=== PATIENT | male | born 1950 | race Caucasian/White ===

== ENCOUNTER 2017-08-07 12:11 | Inpatient (IN) | payer OTHER ==
[~2017-08-07] VITALS: Ht 177.8 cm; Wt 73.7 kg
[~2017-08-07 12:11] MED LIST: ALBU1AER9 INH; ASPCH81X PO; MULT-506 PO
[2017-08-07] MEDS ORDERED: ASPIRIN 81 MG CHEW PO STA (12:38)
--- NOTE | 2017-08-07 12:45 | EMERGENCY ROOM VISIT NOTE ---
History Report prepared by Gladys: Kyle Montes Under the Supervision of: Dr. Deangelo Sanabria D.O. First contact with patient: 12:25 Chief Complaint: CHEST PAIN Stated Complaint: CHEST PAINS History of Present Illness The patient is a 67 year old male who presents to the Emergency Room with complaints of an episode off worsening chest pain that started around 3 and a half hours ago. He states that he has a history of 2 heart attacks, the last one being in 2009. He also had a heart catheterization and stress test at that time. The patient says that his chest pain started 3 months ago but has been intermittent. He says that while watching television this morning, he had an episode of chest pain that was worse than his prior episodes. The patient states that he currently does not have the pain. He adds that he was watching his arteries in his arms, and the one in his left arm "collapsed". The patient says that during his episodes, his vision gets blurry and he gets a dry mouth. He notes that he does not take any medications daily. He denies any neck or back pain. The patient notes that he is a smoker. Source of History: patient Onset: 3 and a half hours ago Position: chest Quality: other (pain) Timing: worsening, other (episode) Associated Symptoms: No neck pain, No back pain Note: Associated symptoms: Vision gets blurry and gets a dry mouth during episodes. Review of Systems See HPI for pertinent positives & negatives. A total of 10 systems reviewed and were otherwise negative. Past Medical & Surgical Medical Problems: (1) CAD (coronary artery disease) Surgical Problems: (1) H/O shoulder surgery (2) History of appendectomy (3) S/P left knee arthroscopy (4) S/P surgical manipulation of ankle joint Family History Cancer Heart disease Hypertension Social History Smoking Status: Current Every Day Smoker Alcohol Use: occasionally Occupation Status: employed Current/Historical Medications Scheduled Multivitamin (Multivitamin), 1 TAB PO DAILY Scheduled PRN Aspirin (Aspirin Chewable), 81 MG PO for Pain Nitroglycerin (Nitrostat), 0.4 MG UT PRN PRN for chest pain Allergies Coded Allergies: No Known Allergies (Verified , 08/07/17) Physical Exam Vital Signs Date Time Temp Pulse Resp B/P (MAP) Pulse Ox O2 Delivery O2 Flow Rate FiO2 08/07/17 14:58 62 18 205/103 98 Room Air 08/07/17 13:32 59 08/07/17 13:21 98 Room Air 08/07/17 12:16 37.0 74 189/100 95 Room Air Physical Exam GENERAL: Patient is awake, alert, and in no acute distress. Patient is resting comfortably and showing no signs of anxiety EYES: The conjunctivae are clear. The pupils are round and reactive. EARS, NOSE, MOUTH AND THROAT: The nose is without any evidence of any deformity. Mucous membranes are moist tongue is midline NECK: The neck is nontender and supple. RESPIRATORY: Lung sounds are diminished throughout with scattered rhonchi. No tachypnea or conversational dyspnea appreciated. CARDIOVASCULAR: Regular rate and rhythm noted there no murmurs rubs or gallops normal S1 normal S2 GASTROINTESTINAL: The abdomen is soft. Bowel sounds are present in all quadrants. Abdomen is nontender MUSCULOSKELETAL/EXTREMITIES: There is no evidence of gross deformity full range of motion is noted in the hips and shoulders SKIN: There is no obvious evidence of any rash. There are no petechiae, pallor or cyanosis noted. NEUROLOGIC: Patient is awake alert and oriented x3 strength is symmetric patellar reflexes are 2+ bilaterally Medical Decision & Procedures ER Provider Diagnostic Interpretation: X-ray results as stated below per interpretation by me and the radiologist. CHEST ONE VIEW PORTABLE CLINICAL HISTORY: CHEST PAIN COMPARISON STUDY: Chest radiograph April 04, 2012. FINDINGS: Lung volumes are normal. No pneumothorax or pleural effusion is noted. There is no consolidation or evidence for pulmonary edema. Cardiac size is normal. Mediastinal contours are normal. The appearance of the chest is unchanged. IMPRESSION: No acute cardiopulmonary findings. Electronically signed by: Vikas Akers M.D. 08/07/2017 12:59 PM Dictated Date/Time: 08/07/2017 12:58 PM Laboratory Results 08/07/17 13:10 Red Blood Count 5.26, Mean Corpuscular Volume 95.6, Mean Corpuscular Hemoglobin 33.3, Mean Corpuscular Hemoglobin Concent 34.8, Mean Platelet Volume 9.2, Neutrophils (%) (Auto) 71.2, Lymphocytes (%) (Auto) 19.8, Monocytes (%) (Auto) 6.3, Eosinophils (%) (Auto) 2.0, Basophils (%) (Auto) 0.5, Neutrophils # (Auto) 4.64, Lymphocytes # (Auto) 1.29, Monocytes # (Auto) 0.41, Eosinophils # (Auto) 0.13, Basophils # (Auto) 0.03 08/07/17 13:10 Test 08/07/17 13:10 White Blood Count 6.51 K/uL (4.8-10.8) Red Blood Count 5.26 M/uL (4.7-6.1) Hemoglobin 17.5 g/dL (14.0-18.0) Hematocrit 50.3 % (42-52) Mean Corpuscular Volume 95.6 fL (80-100) Mean Corpuscular Hemoglobin 33.3 pg (25-34) Mean Corpuscular Hemoglobin Concent 34.8 g/dl (32-36) Platelet Count 177 K/uL (130-400) Mean Platelet Volume 9.2 fL (7.4-10.4) Neutrophils (%) (Auto) 71.2 % Lymphocytes (%) (Auto) 19.8 % Monocytes (%) (Auto) 6.3 % Eosinophils (%) (Auto) 2.0 % Basophils (%) (Auto) 0.5 % Neutrophils # (Auto) 4.64 K/uL (1.4-6.5) Lymphocytes # (Auto) 1.29 K/uL (1.2-3.4) Monocytes # (Auto) 0.41 K/uL (0.11-0.59) Eosinophils # (Auto) 0.13 K/uL (0-0.5) Basophils # (Auto) 0.03 K/uL (0-0.2) RDW Standard Deviation 47.2 fL (36.4-46.3) RDW Coefficient of Variation 13.5 % (11.5-14.5) Immature Granulocyte % (Auto) 0.2 % Immature Granulocyte # (Auto) 0.01 K/uL (0.00-0.02) Prothrombin Time 10.4 SECONDS (9.0-12.0) Prothromb Time International Ratio 1.0 (0.9-1.1) Activated Partial Thromboplast Time 25.7 SECONDS (21.0-31.0) Partial Thromboplastin Ratio 1.0 Anion Gap 6.0 mmol/L (3-11) Est Creatinine Clear Calc Drug Dose 67.5 ml/min Estimated GFR () 83.0 Estimated GFR (Non- 71.6 BUN/Creatinine Ratio 13.4 (10-20) Calcium Level 8.7 mg/dl (8.5-10.1) Total Bilirubin 0.4 mg/dl (0.2-1) Direct Bilirubin 0.1 mg/dl (0-0.2) Aspartate Amino Transf (AST/SGOT) 18 U/L (15-37) Alanine Aminotransferase (ALT/SGPT) 27 U/L (12-78) Alkaline Phosphatase 76 U/L (45-117) Troponin I < 0.015 ng/ml (0-0.045) Total Protein 7.3 gm/dl (6.4-8.2) Albumin 3.7 gm/dl (3.4-5.0) Lipase 106 U/L (73-393) Laboratory results per my review. Medications Administered Medications (Trade) Dose Ordered Sig/Marva Route Start Time Stop Time Status Last Admin Dose Admin Aspirin (Aspirin Chew) 324 mg NOW STAT PO 08/07/17 12:38 08/07/17 12:39 DC 08/07/17 13:32 324 MG ECG Per My Interpretation Indication: chest pain Rate (beats per minute): 68 Rhythm: normal sinus, sinus bradycardia Findings: ST depression (Lateral), other (no PVCs) Change: no significant change (from Oct 01 2013) ED Course 1236: The patient was evaluated in room B6. A complete history and physical examination were performed. 1238: Aspirin Chew 324 mg PO. 1403: Upon reevaluation, the patient is resting. I discussed results and treatment plan with him. He verbalizes agreement and understanding. The patient will be evaluated for further management and care. 1421: I discussed the patient with Marie Kennedy. The patient will evaluate the patient for further treatment. Medical Decision Differential diagnosis: Etiologies such as cardiac ischemia, aortic dissection, pulmonary embolism, pneumonia, pneumothorax, musculoskeletal, infections, pericarditis, myocarditis , esophageal rupture, gastrointestinal, as well as others were entertained. Nursing notes reviewed. The patient is a 67-year-old male who has a history of acute coronary syndrome as well as coronary artery stenting who presented to the emergency department for intermittent chest discomfort. The patient does not follow up with a primary care physician. He continues to smoke. He started having chest discomfort and was concerned it could be related to his heart so he came to the emergency department. He has no chest pain at this time. The patient's EKG does not appear to be change from previous. I discussed the patient's laboratory and radiographic studies with him. I also discussed the limitations of the emergency department workup for chest pain with him. Given his past medical history and no primary care physician I discussed this case with the on- call [facility] hospitalist group. They have agreed to evaluate the patient in the emergency department for further management and disposition. Medication Reconcilliation Current Medication List: was personally reviewed by me Blood Pressure Screening Patient's blood pressure: Elevated blood pressure Blood pressure disposition: Elevated BP felt to be situational Consults Time Called: 1410 Consulting Physician: Marie Kennedy Returned Call: 1421 I discussed the patient with Marie Kennedy. The patient will evaluate the patient for further treatment. Impression Primary Impression: Chest pain Additional Impression: Abnormal EKG Scribe Attestation The scribe's documentation has been prepared under my direction and personally reviewed by me in its entirety. I confirm that the note above accurately reflects all work, treatment, procedures, and medical decision making performed by me. Departure Information Dispostion Being Evaluated By Hospitalist Referrals No Doctor, Assigned (PCP) Patient Instructions My [facility] Problem Qualifiers Primary Impression: Chest pain Chest pain type: unspecified Qualified Codes: R07.9 - Chest pain, unspecified
--- NOTE | 2017-08-07 13:01 | DIAGNOSTIC IMAGING REPORT ---
CHEST ONE VIEW PORTABLE CLINICAL HISTORY: CHEST PAIN COMPARISON STUDY: Chest radiograph April 04, 2012. FINDINGS: Lung volumes are normal. No pneumothorax or pleural effusion is noted. There is no consolidation or evidence for pulmonary edema. Cardiac size is normal. Mediastinal contours are normal. The appearance of the chest is unchanged. IMPRESSION: No acute cardiopulmonary findings. Electronically signed by: Vikas Akers M.D. 08/07/2017 12:59 PM Dictated Date/Time: 08/07/2017 12:58 PM
[2017-08-07 13:25] LABS: BASO % 0.5 %; BASO ABS # 0.03 K/uL (0-0.2); EOS ABS # 0.13 K/uL (0-0.5); HEMATOCRIT 50.3 % (42-52); HEMOGLOBIN 17.5 g/dL (14.0-18.0); IG# 0.01 K/uL (0.00-0.02); LYMPH % 19.8 %; LYMPH ABS # 1.29 K/uL (1.2-3.4); MEAN CELL VOLUME 95.6 fL (80-100); MEAN CORPUSCULAR HEMOGLOBIN 33.3 pg (25-34); MEAN CORPUSCULAR HGB CONC 34.8 g/dl (32-36); MEAN PLATELET VOLUME 9.2 fL (7.4-10.4); MONO % 6.3 %; MONO ABS # 0.41 K/uL (0.11-0.59); NEUT % 71.2 %; NEUT ABS # 4.64 K/uL (1.4-6.5); PLATELET COUNT 177 K/uL (130-400); RED CELL DISTRIBUTION WIDTH CV 13.5 % (11.5-14.5); RED CELL DISTRIBUTION WIDTH SD 47.2 fL (36.4-46.3); WHITE BLOOD COUNT 6.51 K/uL (4.8-10.8)
[2017-08-07 13:34] LABS: PTT PATIENT 25.7 SECONDS (21.0-31.0)
[2017-08-07 13:49] LABS: ALBUMIN 3.7 gm/dl (3.4-5.0); ALT/SGPT 27 U/L (12-78); BLOOD UREA NITROGEN 15 mg/dl (7-18); CALCIUM 8.7 mg/dl (8.5-10.1); CARBON DIOXIDE 25 mmol/L (21-32); CREATININE 1.08 mg/dl (0.60-1.40); GLUCOSE 101 mg/dl (70-99); LIPASE 106 U/L (73-393); POTASSIUM 4.1 mmol/L (3.5-5.1); SODIUM 137 mmol/L (136-145)
[2017-08-07 13:54] LABS: ALKALINE PHOSPHATASE 76 U/L (45-117); AST/SGOT 18 U/L (15-37); TOTAL PROTEIN 7.3 gm/dl (6.4-8.2)
[2017-08-07] MEDS ORDERED: ONDANSETRON INJ 2 MG/ML 2 ML VIAL IV PRN (15:00)
[2017-08-07] MEDS ORDERED: ACETAMINOPHEN 325 MG TAB PO PRN (15:00)
[2017-08-07] MEDS ORDERED: NITROGLYCERIN 0.4 MG SL PER TAB CHARGE SL PRN (15:00)
[2017-08-07] MEDS ORDERED: NTRGSL/4 UT (15:09)
[2017-08-07] MEDS ORDERED: LORAZEPAM 2 MG/ML 1 ML VIAL IV PRN (15:30)
--- NOTE | 2017-08-07 16:27 | History and Physical ---
History & Physical Date & Time of Service: Aug 07, 2017 ~ 14:30 Chief Complaint: Chest Pains Primary Care Physician: Dr. Wise History of Present Illness 67-year-old male who presents to the ER with a chief complaint of chest pain. Patient has history of coronary artery disease with STEMI in 2005 and 2009 S/P stenting. Patient has not been seen by primary care or cardiology since 2011. He reports he lost his job and lost his insurance and also has not taken his medication since that time. Patient reports increasing episodes of chest pain over the past 6 months. He reports that during the previous [place], he noted left- sided chest pain with fatigue and shortness of breath. He would take nitroglycerin and rest and symptoms are improved. He sometimes would have associated diaphoresis, lightheadedness, and near syncope. He developed these symptoms with exertion as well as at rest. He reports that this morning he was watching TV and developed a left-sided chest pain. He denies any radiation of the pain into his jaw, neck, shoulder, or arm. No abdominal pain, nausea, vomiting, or diarrhea. Patient reports an approximately 25 pound weight loss the past 3 months however he has been dieting. He denies any changes in bowel habits. No fevers or chills. He denies any urinary symptoms. In the ER patient's initial troponin is negative, EKG does not show any acute ST changes. Blood pressure is hypertensive, other vitals are stable. Past Medical/Surgical History Medical Problems: (1) CAD (coronary artery disease) Permanent Comment: 2005 - STEMI, BMS to RCA 10/2009 - STEMI, BMS to LAD, cath showed 70% ostial OM and 70% PDA disease Status: Chronic Surgical Problems: (1) H/O shoulder surgery Status: Chronic (2) History of appendectomy Status: Chronic (3) S/P left knee arthroscopy Status: Chronic (4) S/P surgical manipulation of ankle joint Status: Chronic Family History FH: liver cancer FATHER Social History Smoking Status: Current Every Day Smoker Alcohol Use: 4 beers/day Immunizations History of Pneumococcal: Yes Pneumococcal Date: Dec 21, 2007 History of Hepatitis B Vaccine: No Allergies Coded Allergies: No Known Allergies (Verified , 08/07/17) Home Medications Scheduled Multivitamin (Multivitamin), 1 TAB PO DAILY Scheduled PRN Aspirin (Aspirin Chewable), 81 MG PO for Pain Nitroglycerin (Nitrostat), 0.4 MG UT PRN PRN for chest pain Review of Systems ROS per HPI, all other systems reviewed and negative Physical Exam Vital Signs Date Time Temp Pulse Resp B/P (MAP) Pulse Ox O2 Delivery O2 Flow Rate FiO2 08/07/17 15:28 56 16 187/85 96 Room Air 08/07/17 14:58 62 18 205/103 98 Room Air 08/07/17 13:32 59 08/07/17 13:21 98 Room Air 08/07/17 12:16 37.0 74 189/100 95 Room Air General Appearance: WD/WN, no apparent distress Head: normocephalic, atraumatic Eyes: normal inspection, EOMI, sclerae normal ENT: hearing grossly normal, + pertinent finding (Mucous membranes moist) Neck: supple, no JVD, trachea midline Respiratory/Chest: lungs clear, normal breath sounds, no respiratory distress Cardiovascular: regular rate, rhythm, no edema, normal peripheral pulses Abdomen/GI: normal bowel sounds, non tender, soft, no organomegaly Extremities/Musculoskelatal: normal inspection, no calf tenderness, normal capillary refill Neurologic/Psych: no motor/sensory deficits, alert, normal mood/affect, oriented x 3 Skin: normal color, warm/dry Diagnostics Laboratory Results Results Past 24 Hours Test 08/07/17 13:10 Range/Units White Blood Count 6.51 4.8-10.8 K/uL Red Blood Count 5.26 4.7-6.1 M/uL Hemoglobin 17.5 14.0-18.0 g/dL Hematocrit 50.3 42-52 % Mean Corpuscular Volume 95.6 80-100 fL Mean Corpuscular Hemoglobin 33.3 25-34 pg Mean Corpuscular Hemoglobin Concent 34.8 32-36 g/dl Platelet Count 177 130-400 K/uL Mean Platelet Volume 9.2 7.4-10.4 fL Neutrophils (%) (Auto) 71.2 % Lymphocytes (%) (Auto) 19.8 % Monocytes (%) (Auto) 6.3 % Eosinophils (%) (Auto) 2.0 % Basophils (%) (Auto) 0.5 % Neutrophils # (Auto) 4.64 1.4-6.5 K/uL Lymphocytes # (Auto) 1.29 1.2-3.4 K/uL Monocytes # (Auto) 0.41 0.11-0.59 K/uL Eosinophils # (Auto) 0.13 0-0.5 K/uL Basophils # (Auto) 0.03 0-0.2 K/uL RDW Standard Deviation 47.2 36.4-46.3 fL RDW Coefficient of Variation 13.5 11.5-14.5 % Immature Granulocyte % (Auto) 0.2 % Immature Granulocyte # (Auto) 0.01 0.00-0.02 K/uL Prothrombin Time 10.4 9.0-12.0 SECONDS Prothromb Time International Ratio 1.0 0.9-1.1 Activated Partial Thromboplast Time 25.7 21.0-31.0 SECONDS Partial Thromboplastin Ratio 1.0 Sodium Level 137 136-145 mmol/L Potassium Level 4.1 3.5-5.1 mmol/L Chloride Level 106 98-107 mmol/L Carbon Dioxide Level 25 21-32 mmol/L Anion Gap 6.0 3-11 mmol/L Blood Urea Nitrogen 15 7-18 mg/dl Creatinine 1.08 0.60-1.40 mg/dl Est Creatinine Clear Calc Drug Dose 67.5 ml/min Estimated GFR () 83.0 Estimated GFR (Non- 71.6 BUN/Creatinine Ratio 13.4 10-20 Random Glucose 101 70-99 mg/dl Calcium Level 8.7 8.5-10.1 mg/dl Total Bilirubin 0.4 0.2-1 mg/dl Direct Bilirubin 0.1 0-0.2 mg/dl Aspartate Amino Transf (AST/SGOT) 18 15-37 U/L Alanine Aminotransferase (ALT/SGPT) 27 12-78 U/L Alkaline Phosphatase 76 45-117 U/L Troponin I < 0.015 0-0.045 ng/ml Total Protein 7.3 6.4-8.2 gm/dl Albumin 3.7 3.4-5.0 gm/dl Lipase 106 73-393 U/L Diagnostic Radiology CXR IMPRESSION: No acute cardiopulmonary findings. Impression Assessment and Plan CHEST PAIN, HISTORY OF CAD -Admit patient to telemetry -Patient presenting with increasing episodes of exertional and at rest chest pain, has history of coronary artery disease, has not been seen by a physician or taken his meds since 2011 due to loss of insurance -2005 STEMI S/P BMS to RCA, 2009 STEMI S/P BMS to LAD and cath at that time showed 70% ostial OM and 70% PDA disease -In the ED, initial troponin negative, EKG without acute ST changes -Will continue to cycle cardiac enzymes, resting echo -Patient very resistant to restarting medications, agreeable to aspirin and lisinopril for now -Cardiology consult, case discussed with Dr. Perez HYPERTENSION -Blood pressure currently uncontrolled -Has been off antihypertensives for the past 6 years -We will restart lisinopril 10 mg daily, would avoid beta blockers due to mild bradycardia ALCOHOL ABUSE -Patient reports drinking approximately 4 beers per day -No problems with withdrawal in the past -We will monitor patient closely for signs of withdrawal -Multivitamin, folic acid, thiamine DVT PROPHYLAXIS - SQ Lovenox DISPOSITION - The patient will be placed as observation status for now until further work up is complete. Addendum: I have seen and examined the patient have discussed the case with the provider above. I agree with the assessment and plan as stated. Please see cardiac consult written by Dr. Perez for further recommendations. Jaylon, DO Resuscitation Status VTE Prophylaxis Will order VTE Prophylaxis: Yes
[2017-08-07] MEDS ORDERED: THIAMINE HCL 100 MG TAB PO ONE (17:00)
[2017-08-07] MEDS ORDERED: LISINOPRIL 10 MG TAB PO ONE (17:00)
[2017-08-07 17:05] VITALS: BP 171/115; PULSE 61; TEMP 36.7; Ht 177.8 cm; Wt 73.7 kg
[2017-08-07 17:16] VITALS: O2SAT 96
[2017-08-07 19:01] VITALS: BP 156/78; PULSE 60; TEMP 36.9; O2SAT 96
--- NOTE | 2017-08-07 19:27 | Cardiology Consultation ---
Cardiology Consultation Date of Consultation: Aug 07, 2017 History of Present Illness Michael Dodd is a 67-year-old male seen in cardiology consultation per the request of JASON Robin for the evaluation of chest discomfort and hypertension. The patient has previously followed with Dr. Lui Trivedi of our practice, however it appears he stopped attending appointments in 2011 with most recent cardiology clinic visit dated 10/19/2011. At that time in 2011 he had complained of chest discomfort. A follow-up stress echocardiogram shortly thereafter revealed a fixed LAD territory wall motion abnormality with no evidence of inducible ischemia. This test described below. The patient never returned to cardiology follow-up. He states he has been off of his medications completely since he lost his job in 2011. He continues to smoke 1 pack of cigarettes per day. He drinks 4-5 beer beverages per day. He states he has been having exertional chest discomfort for an interval of approximately 6 months. He recalls the last time that he had significant exertional chest discomfort was during hunting season in the fall. This morning he came to the hospital when he had a left-sided chest discomfort described as being somewhat focal over his left nipple. He was concerned however that the discomfort persisted and that it was reminiscent of his past heart attack pain. He therefore came to the emergency room. On presentation he was significant hypertensive with blood pressure readings of 189/100 and 205/ 103 on presentation. He thus far has received 10 mg of oral lisinopril and his blood pressure and most recent vital sign check was 156/78. The patient states he is chest pain-free. He believes his pain dissipated just before he arrived at the hospital at approximately 11 AM having her after the hospital just after 12 noon. A single EKG is on the chart dated 08/07/17 at 1223 revealed normal sinus rhythm at 68 bpm with very mild nonspecific ST abnormalities. Past Medical/Surgical History Problem List: Medical Problems: (1) CAD (coronary artery disease) Surgical Problems: (1) H/O shoulder surgery (2) History of appendectomy (3) S/P left knee arthroscopy (4) S/P surgical manipulation of ankle joint History Past Medical History: 1. Coronary heart disease with anterior ST segment elevation myocardial infarction in 2009 for which he underwent cardiac catheterization and bare- metal stenting to the LAD at that time, residual 70% ostial obtuse marginal lesion was noted in 70% PDA disease noted. -Inferior wall STEMI 2007 with bare-metal stent to the right coronary artery at that time 2. Nuclear stress test May 2011 demonstrated septal scar without ischemia and preserved LVEF, which correlated with echocardiogram findings and apical, and anteroseptal scar with mild to moderate hypokinesis in that territory. 3. History of alcohol abuse 4. History of tobacco use. 5. Hypertension 6. Dyslipidemia 7. History of left ventricular mural thrombus which had resolved on follow-up echocardiogram, last available report 2011 8. Stress echocardiogram 10/23/2011 revealed a fixed wall motion abnormality encompassing the mid and apical segments of the anterior septum as well as the apical inferior septum which were hypokinetic at rest and are unchanged with stress, the remaining myocardial segments augmented appropriately it was felt that there is no evidence of inducible ischemia. Past Surgical History: 1. Cardiac catheterization 2009 and 2007 2. Shoulder surgery 2003 Social History: Everyday smoker History of excessive alcohol use in the past Family History: Notable for heart disease and mother as well as stroke There is history of cancer of the liver and hypertension Review Of Systems See above for pertinent positives & negatives. A total of 10 systems reviewed and were otherwise negative. Allergies Coded Allergies: No Known Allergies (Verified , 08/07/17) Medications Reported Home Medications Medications Dose Route/Sig Max Daily Dose Days Date Category Nitrostat (Nitroglycerin) 0.4 Mg Tab 0.4 Mg UT PRN PRN 08/07/17 Reported Multivitamin (Multivitamins) Tab 1 Tab PO DAILY 10/01/13 Reported Aspirin Chewable (Aspirin) 81 Mg Chew 81 Mg PO PRN 04/04/12 Reported Physical Exam Vital Signs (Last 8hrs): Last 8 Hrs Date Time Temp Pulse Resp B/P (MAP) Pulse Ox O2 Delivery O2 Flow Rate FiO2 08/07/17 17:16 96 Room Air 08/07/17 17:05 36.7 61 20 171/115 08/07/17 15:28 56 16 187/85 96 Room Air 08/07/17 14:58 62 18 205/103 98 Room Air 08/07/17 13:32 59 08/07/17 13:21 98 Room Air 08/07/17 12:16 37.0 74 189/100 95 Room Air General Appearance: Alert and Oriented x3. NAD. Head: Normocephalic Atraumatic. Eyes: PERRLA, EOMI, conjunctiva and sclera clear Neck: Supple. No carotid bruits noted. No JVD. No HJD. Respiratory: Breath sounds clear to auscultation bilaterally. No w/r/r. Cardiovascular: Reg rate and rhythm. S1 and S2 noted. No murmurs, rubs, gallops. PMI non displace. Abdomen: Normal bowel sounds, soft nontender. no abdominal bruits. Extremities: No edema, no clubbing or cyanosis. distal pulses 2/4 bilaterally. Neuro: No focal deficits. Psychiatric: Normal affect. Data Last 24 Hours Test 08/07/17 13:10 08/07/17 19:00 White Blood Count 6.51 K/uL Red Blood Count 5.26 M/uL Hemoglobin 17.5 g/dL Hematocrit 50.3 % Mean Corpuscular Volume 95.6 fL Mean Corpuscular Hemoglobin 33.3 pg Mean Corpuscular Hemoglobin Concent 34.8 g/dl Platelet Count 177 K/uL Mean Platelet Volume 9.2 fL Neutrophils (%) (Auto) 71.2 % Lymphocytes (%) (Auto) 19.8 % Monocytes (%) (Auto) 6.3 % Eosinophils (%) (Auto) 2.0 % Basophils (%) (Auto) 0.5 % Neutrophils # (Auto) 4.64 K/uL Lymphocytes # (Auto) 1.29 K/uL Monocytes # (Auto) 0.41 K/uL Eosinophils # (Auto) 0.13 K/uL Basophils # (Auto) 0.03 K/uL RDW Standard Deviation 47.2 fL RDW Coefficient of Variation 13.5 % Immature Granulocyte % (Auto) 0.2 % Immature Granulocyte # (Auto) 0.01 K/uL Prothrombin Time 10.4 SECONDS Prothromb Time International Ratio 1.0 Activated Partial Thromboplast Time 25.7 SECONDS Partial Thromboplastin Ratio 1.0 Sodium Level 137 mmol/L Potassium Level 4.1 mmol/L Chloride Level 106 mmol/L Carbon Dioxide Level 25 mmol/L Anion Gap 6.0 mmol/L Blood Urea Nitrogen 15 mg/dl Creatinine 1.08 mg/dl Est Creatinine Clear Calc Drug Dose 67.5 ml/min Estimated GFR () 83.0 Estimated GFR (Non- 71.6 BUN/Creatinine Ratio 13.4 Random Glucose 101 mg/dl Calcium Level 8.7 mg/dl Total Bilirubin 0.4 mg/dl Direct Bilirubin 0.1 mg/dl Aspartate Amino Transf (AST/SGOT) 18 U/L Alanine Aminotransferase (ALT/SGPT) 27 U/L Alkaline Phosphatase 76 U/L Troponin I < 0.015 ng/ml Total Protein 7.3 gm/dl Albumin 3.7 gm/dl Lipase 106 U/L Hepatitis C Antibody Screen NEG EKG as noted above telemetry reveals sinus rhythm Assessment & Plan Impression: 67-year-old male 1. Chest discomfort, negative enzymes and negative EKG 1, chest pain resolved 2. No coronary artery disease previous inferior and anterior myocardial infarctions 2007 and in 2009 at which time he received bare-metal stents in the right coronary artery in 2007 and in the LAD and 2009. Most recent cardiac catheterization in 2009 he had residual CAD in the obtuse marginal territory as well as the RPDA territory. Negative stress testing in 2011 after which time he completely fell off the cardiology wagon, stopped following up, and stopped taking his medications. 3. Hypertension 4. Ongoing cigarette smoking 5. History of alcohol use, in the past was documented that he was having 40 alcoholic beverages per week, he states he has 4-5 beer beverages per day Plan: At present the patient is chest pain-free. Given the results of his cardiac catheterization in 2009, it would not be surprising that he has exertional chest discomfort when he is off of his medication therapy. Based on his medication list is documented on 02/22/2012 in our office he was on aspirin 81 mg , atorvastatin 80 mg, clopidogrel 75 mg, furosemide 20 mg, lisinopril 10 mg, metoprolol tartrate 50 mg a.m. and 25 mg p.m. at that time. Aspirin has been resumed as has been lisinopril 10 mg daily. I am going to add back his metoprolol tartrate and it is a 25 mg twice daily to ease him back into a routine and prevent symptomatic low blood pressure. I am going to transition him to pravastatin 40 mg. I counseled him that all these medications are available inexpensively for $4 a month at [facility], and that we should be able to find a medication program for him that would be affordable for him. Plan to trend his cardiac enzymes and symptoms overnight. If his cardiac enzymes are negative, we will likely proceed with a nuclear stress test as I anticipate this test will have better sensitivity for discriminating between his past LAD territory scar and inducible ischemia. Bernard Perez, DO
[2017-08-07] MEDS ORDERED: PRAVASTATIN SOD 40 MG TAB PO ONE (19:28)
[2017-08-07 20:00] VITALS: O2SAT 96
[2017-08-07] MEDS: METOPROLOL TARTRATE 25 MG TAB PO SCH (20:21)
[2017-08-07] MEDS: ENOXAPARIN 40 MG/0.4 ML SYR SC SCH (20:21)
[2017-08-07 23:59] VITALS: BP 122/75; PULSE 53; TEMP 36.7; O2SAT 94
[2017-08-08 04:00] VITALS: BP 124/73; PULSE 52; TEMP 36.7; O2SAT 94
--- NOTE | 2017-08-08 06:58 | Clinical Documentation Query ---
MIGUEL Cherry : CLINICAL DOCUMENTATION QUERY Patient is a 67 year old male with a history of CAD admitted for evaluation of "chest pain". This cannot be interpreted by the tobacco feeder catcher to be synonymous with angina. If this "chest pain" is believed to be associated with CAD/ischemic in origin, consider explicit documentation as suggested below. In your clinical opinion is this patient being managed for: ( ) Unstable angina (in the setting of CAD) ( ) Not Agree ( ) Other explanation of clinical findings (Please Explain) ( ) Unable to determine (Please Define) ( ) Need to Discuss The medical record reflects the following clinical findings, treatment, and risk factors. Clinical Indicators: As above Treatment: Telemetry, cardiology consultation, serial enzymes, nuclear med stress test, pravastatin, ASA, Lisinopril, Lopressor Risk Factors: Age, CAD, smoking, hypertension, hyperlipidemia Please clarify and document your clinical opinion in the progress notes and discharge summary. Terms such as "probable", "suspected", "likely", "questionable", "possible", or "still to be ruled out" are acceptable. IF IN AGREEMENT, YOU MUST DOCUMENT ABOVE DIAGNOSTIC STATEMENT IN DAILY PROGRESS NOTES AND DISCHARGE SUMMARY. This document is not part of the patient's record. Thank You, Edvin Oneil, RN [phone]
[2017-08-08 07:50] LABS: HEMATOCRIT 49.8 % (42-52); HEMOGLOBIN 16.8 g/dL (14.0-18.0); MEAN CELL VOLUME 96.3 fL (80-100); MEAN CORPUSCULAR HEMOGLOBIN 32.5 pg (25-34); MEAN CORPUSCULAR HGB CONC 33.7 g/dl (32-36); MEAN PLATELET VOLUME 9.7 fL (7.4-10.4); PLATELET COUNT 192 K/uL (130-400); RED CELL DISTRIBUTION WIDTH CV 13.5 % (11.5-14.5); RED CELL DISTRIBUTION WIDTH SD 47.5 fL (36.4-46.3); WHITE BLOOD COUNT 7.12 K/uL (4.8-10.8)
[2017-08-08 07:56] VITALS: BP 121/70; PULSE 51; TEMP 36.7; O2SAT 95
[2017-08-08 08:21] LABS: CALCIUM 8.6 mg/dl (8.5-10.1); CREATININE 0.96 mg/dl (0.60-1.40); POTASSIUM 4.1 mmol/L (3.5-5.1)
[2017-08-08] MEDS: METOPROLOL TARTRATE 25 MG TAB PO SCH ×2 (09:00→20:48)
[2017-08-08] MEDS: THIAMINE HCL 100 MG TAB PO SCH (09:00)
--- NOTE | 2017-08-08 10:02 | Cardiology Follow-Up ---
Subjective General Date of Service: Aug 08, 2017. Chief Complaint: follow up chest pain Pt evaluation today including: conversation w/ patient, physical exam History of Present Illness The patient is a 67 year old male seen in cardiology follow up. CP free overnight. BP improved on medications. Serial troponin measurements have been normal. EKG this am without acute changes. Known h/o LAD territory septal scar based on prior testing. Allergies Coded Allergies: No Known Allergies (Verified , 08/07/17) Social History Smoking Status: Current Every Day Smoker Hx Tobacco Use In Past Year?: Yes Hx Alcohol Use - Type And Amou: Yes (6 beers per day) Hx Substance Use - Type And Am: No Physical Exam Vital Signs Last Vital Signs Documentation Date Time Temp Pulse Resp B/P (MAP) Pulse Ox O2 Delivery O2 Flow Rate FiO2 08/08/17 07:56 36.7 51 18 121/70 (87) 95 Room Air Physical Exam Constitutional: Level of Distress: NAD Neck: supple Lungs: Auscultation: no wheezing, no rales/crackles, no rhonchi Cardiovascular: Heart Auscultation: RRR, normal S1, normal S2, no murmurs Extremities: no cyanosis, no edema Neurologic: Gait & Station: pertinent finding (no focal deficits ) Assessment and Plan Assessment and Plan Impression: 67-year-old male 1. Chest discomfort, negative enzymes and negative EKG 1, chest pain resolved 2. No coronary artery disease previous inferior and anterior myocardial infarctions 2007 and in 2009 at which time he received bare-metal stents in the right coronary artery in 2007 and in the LAD and 2009. Most recent cardiac catheterization in 2009 he had residual CAD in the obtuse marginal territory as well as the RPDA territory. Negative stress testing in 2011 after which time he , stopped following up, and stopped taking his medications. 3. Hypertension 4. Ongoing cigarette smoking 5. History of alcohol use, in the past was documented that he was having 40 alcoholic beverages per week, he states he has 4-5 beer beverages per day Plan: Continue ASA, metoprolol, lisinopril, pravastatin-generic medications $4 [facility] medications. Will review echo. Plan for tentative nuclear stress test today. Laboratory Results Last 24 Hours Test 08/07/17 13:10 08/07/17 19:59 08/08/17 01:05 08/08/17 06:57 White Blood Count 6.51 K/uL 7.12 K/uL Red Blood Count 5.26 M/uL 5.17 M/uL Hemoglobin 17.5 g/dL 16.8 g/dL Hematocrit 50.3 % 49.8 % Mean Corpuscular Volume 95.6 fL 96.3 fL Mean Corpuscular Hemoglobin 33.3 pg 32.5 pg Mean Corpuscular Hemoglobin Concent 34.8 g/dl 33.7 g/dl Platelet Count 177 K/uL 192 K/uL Mean Platelet Volume 9.2 fL 9.7 fL Neutrophils (%) (Auto) 71.2 % Lymphocytes (%) (Auto) 19.8 % Monocytes (%) (Auto) 6.3 % Eosinophils (%) (Auto) 2.0 % Basophils (%) (Auto) 0.5 % Neutrophils # (Auto) 4.64 K/uL Lymphocytes # (Auto) 1.29 K/uL Monocytes # (Auto) 0.41 K/uL Eosinophils # (Auto) 0.13 K/uL Basophils # (Auto) 0.03 K/uL RDW Standard Deviation 47.2 fL 47.5 fL RDW Coefficient of Variation 13.5 % 13.5 % Immature Granulocyte % (Auto) 0.2 % Immature Granulocyte # (Auto) 0.01 K/uL Prothrombin Time 10.4 SECONDS Prothromb Time International Ratio 1.0 Activated Partial Thromboplast Time 25.7 SECONDS Partial Thromboplastin Ratio 1.0 Sodium Level 137 mmol/L 137 mmol/L Potassium Level 4.1 mmol/L 4.1 mmol/L Chloride Level 106 mmol/L 105 mmol/L Carbon Dioxide Level 25 mmol/L 26 mmol/L Anion Gap 6.0 mmol/L 6.0 mmol/L Blood Urea Nitrogen 15 mg/dl 15 mg/dl Creatinine 1.08 mg/dl 0.96 mg/dl Est Creatinine Clear Calc Drug Dose 67.5 ml/min 79.2 ml/min Estimated GFR () 83.0 95.8 Estimated GFR (Non- 71.6 82.6 BUN/Creatinine Ratio 13.4 15.8 Random Glucose 101 mg/dl 94 mg/dl Calcium Level 8.7 mg/dl 8.6 mg/dl Total Bilirubin 0.4 mg/dl Direct Bilirubin 0.1 mg/dl Aspartate Amino Transf (AST/SGOT) 18 U/L Alanine Aminotransferase (ALT/SGPT) 27 U/L Alkaline Phosphatase 76 U/L Troponin I < 0.015 ng/ml < 0.015 ng/ml < 0.015 ng/ml Total Protein 7.3 gm/dl Albumin 3.7 gm/dl Lipase 106 U/L Hepatitis C Antibody Screen NEG Triglycerides Level 274 mg/dl Cholesterol Level 187 mg/dl HDL Cholesterol 33 mg/dl LDL Cholesterol, Calculated 99 mg/dl VLDL Cholesterol, Calculated 55 mg/dl Cholesterol/HDL Ratio 5.7
--- NOTE | 2017-08-08 10:50 | ECHOCARDIOGRAM REPORT ---
*NOTICE TO RECEIVING DEMOCRAT AGENCY This information is strictly Confidential and protected under [place] law. [place] law prohibits you from making any further disclosure of this information unless further disclosure is expressly permitted by the written consent of the person to whom it pertains or is authorized by law. A general authorization for the release of medical or other information is not sufficient for this purpose. Hospital accepts no responsibility if the information is made available to any other person, INCLUDING THE PATIENT. Interpretation Summary * Name: RICHIE MEDRANO Study Date: 08/08/2017 05:25 AM BP: 124/73 mmHg * Patient Location: C.2T\S\S229\S\1 HR: 52 * : 1950 (M/d/yyyy) Gender: Male Height: 70 in * Age: 67 yrs Ethnicity: CA Weight: 154 lb * Ordering Physician: Marie Figueroa * Referring Physician: Self, Referred * Performed By: Maria Ines Stiles RDCS * * Reason For Study: CHEST PAIN * BSA: 1.9 m2 * The study was technically adequate. * There is no comparison study available. * -- Conclusions -- * Ejection Fraction = 50-55%. * There is a small to moderate size wall motion abnormality involving the mid and apical anterior septum, and apical inferior septum with hypokinesis to akinesis of the segments. * Grade I diastolic dysfunction, (abnormal relaxation pattern). * Aortic valve sclerosis mild, without significant aortic valvular stenosis. Procedure Details * A complete two-dimensional transthoracic echocardiogram was performed (2D, M-mode, Doppler and color flow Doppler). Left Ventricle * The left ventricle is normal in size. * There is normal left ventricular wall thickness. * Ejection Fraction = 50-55%. * Left ventricular systolic function is normal. * There is a small to moderate size wall motion abnormality involving the mid and apical anterior septum, and apical inferior septum with hypokinesis to akinesis of the segments. Right Ventricle * The right ventricle is normal size. * The right ventricular systolic function is normal as assessed by tricuspid annular plane systolic excursion (TAPSE) (normal >1.5 cm). Atria * The left atrial size is normal. * Right atrial size is normal. * There is no evidence of atrial septal defect, but resolution does not allow assessment for a patent foramen ovale. Mitral Valve * The mitral valve is normal. * There is no mitral valve stenosis. * Significant mitral regurgitation is absent. Tricuspid Valve * The tricuspid valve is normal. * There is no tricuspid stenosis. * Significant tricuspid regurgitation is absent. Aortic Valve * The aortic valve is trileaflet. * Aortic valve sclerosis mild, without significant aortic valvular stenosis. * Aortic stenosis is absent. * There is no significant aortic regurgitation. Pulmonic Valve * The pulmonary valve is not well seen, but the Doppler examination is normal without significant regurgitation or stenosis. Great Vessels * The aortic root and proximal ascending aorta are normal sized. Pericardium/Pleural * There is no pericardial effusion. Great Vessels * Normal inferior vena cava diameter and respiratory variation suggests normal central venous pressure. Left Ventricular Diastolic Function * Grade I diastolic dysfunction, (abnormal relaxation pattern). MMode 2D Measurements and Calculations IVSd 1.1 cm IVSs 1.7 cm LVIDd 4.5 cm LVIDs 3.4 cm LVPWd 1.2 cm LVPWs 1.7 cm IVS/LVPW 0.96 FS 23.8 % EDV(Teich) 90.6 ml ESV(Teich) 47.4 ml EF(Teich) 47.7 % EDV(cubed) 88.8 ml ESV(cubed) 39.3 ml EF(cubed) 55.8 % % IVS thick 49.2 % % LVPW thick 48.1 % LV mass(C)d 180.1 grams LV mass(C)dI 96.4 grams/m\S\2 LV mass(C)s 225.8 grams LV mass(C)sI 120.9 grams/m\S\2 SV(Teich) 43.2 ml SI(Teich) 23.1 ml/m\S\2 SV(cubed) 49.6 ml SI(cubed) 26.5 ml/m\S\2 Ao root diam 3.1 cm Ao root area 7.3 cm\S\2 LA dimension 2.8 cm LA/Ao 0.91 LVAd ap4 29.1 cm\S\2 LVLd ap4 9.2 cm EDV(MOD-sp4) 76.9 ml EDV(sp4-el) 78.0 ml LVAs ap4 19.2 cm\S\2 LVLs ap4 8.3 cm ESV(MOD-sp4) 38.0 ml ESV(sp4-el) 37.4 ml EF(MOD-sp4) 50.5 % EF(sp4-el) 52.1 % LVAd ap2 29.0 cm\S\2 LVLd ap2 9.1 cm EDV(MOD-sp2) 73.3 ml EDV(sp2-el) 77.9 ml LVAs ap2 18.2 cm\S\2 LVLs ap2 8.2 cm ESV(MOD-sp2) 34.2 ml ESV(sp2-el) 34.3 ml EF(MOD-sp2) 53.3 % EF(sp2-el) 55.9 % LVLd %diff -0.78 % EDV(MOD-bp) 74.7 ml LVLs %diff -1.56 % ESV(MOD-bp) 36.1 ml EF(MOD-bp) 51.6 % SV(MOD-sp4) 38.8 ml SI(MOD-sp4) 20.8 ml/m\S\2 SV(MOD-sp2) 39.1 ml SI(MOD-sp2) 20.9 ml/m\S\2 SV(MOD-bp) 38.6 ml SI(MOD-bp) 20.6 ml/m\S\2 SV(sp4-el) 40.6 ml SI(sp4-el) 21.7 ml/m\S\2 SV(sp2-el) 43.6 ml SI(sp2-el) 23.3 ml/m\S\2 Doppler Measurements and Calculations MV E max spenser 53.6 cm/sec MV A max spenser 67.9 cm/sec MV E/A 0.79 MV dec time 0.35 sec Ao V2 max 124.3 cm/sec Ao max PG 6.2 mmHg Ao max PG (full) 2.3 mmHg LV V1 max PG 3.9 mmHg LV V1 max 98.5 cm/sec
[2017-08-08 11:37] VITALS: BP 122/71; PULSE 48; TEMP 36.8; O2SAT 95
[2017-08-08] MEDS ORDERED: REGADENOSON 0.4 MG/5 ML SYR ONE (11:50)
[2017-08-08] MEDS: LISINOPRIL 10 MG TAB PO SCH (14:51)
[2017-08-08] MEDS: MULTIVITAMIN TAB PO SCH (14:52)
[2017-08-08] MEDS: ASPIRIN 81 MG ECTAB PO SCH (14:52)
[2017-08-08 15:41] VITALS: BP 143/73; PULSE 52; TEMP 36.6; O2SAT 97
--- NOTE | 2017-08-08 16:12 | Cardiology Progress Note ---
Cardiology Progress Note Date of Service Aug 08, 2017. Cardiology Progress Note Nuclear stress test with evidence of septal scar, inferior scar with very subtle reversibility, and reversible circumflex territory perfusion defect consistent with ischemia. I had a long discussion with the plan regarding the importance of medication therapy. Plan keep patient in the hospital for cardiac catheterization. Will see patient now, make n.p.o. after midnight for planned cardiac catheterization tomorrow. Plan for bare-metal stent to minimize duration of length of dual antiplatelet therapy. Patient was counseled on the importance of adhering to his medications.
[2017-08-08] MEDS: PRAVASTATIN SOD 40 MG TAB PO SCH (16:40)
--- NOTE | 2017-08-08 18:14 | Progress Note ---
Internal Med Progress Note Date of Service: Aug 08, 2017. Provider Documentation: SUBJECTIVE: resting comfortably denies chest pain or sob no nausea afebrile no cough hemodynamics stable OBJECTIVE: Vital Signs-as noted below Exam: General-alert and oriented. Not in distress ENT-Normal hearing Neck-no neck masses Lungs-cta b/l no wheezing or crackles Heart-S1 and S2 heard regular rate and rhythm no murmurs Abdomen-Soft bowel sounds present non tender no distension Extremities-no edema no erythema Neuro-alert and awake moves extremities Lab data as noted below. ASSESSMENT & PLAN: CHEST PAIN, HISTORY OF CAD Patient presented with increasing episodes of exertional and at rest chest pain , has history of coronary artery disease, has not been seen by a physician or taken his meds since 2011 due to loss of insurance 2005 STEMI S/P BMS to RCA, 2009 STEMI S/P BMS to LAD and cath at that time showed 70% ostial OM and 70% PDA disease cardiac enzymes and ekg unremarkable started on aspirin, b dash and statin nuclear stress test positive plan for cardiac cath as per cardiology HYPERTENSION Blood pressure currently uncontrolled off antihypertensives for the past 6 years started on lisinopril 10 mg daily,and lopresor will monitor. ALCOHOL ABUSE Patient reports drinking approximately 4 beers per day as per h and p No problems with withdrawal in the past monitor for signs of withdrawal Multivitamin, folic acid, thiamine DVT PROPHYLAXIS SQ Lovenox DISPOSITION monitor in tele Vital Signs: Date Time Temp Pulse Resp B/P (MAP) Pulse Ox O2 Delivery O2 Flow Rate FiO2 08/08/17 15:47 Room Air 08/08/17 15:41 36.6 52 18 143/73 (96) 97 Room Air 08/08/17 11:37 36.8 48 16 122/71 (88) 95 Room Air 08/08/17 08:00 Room Air 08/08/17 07:56 36.7 51 18 121/70 (87) 95 Room Air 08/08/17 04:00 Room Air 08/08/17 04:00 36.7 52 18 124/73 (90) 94 Room Air 08/07/17 23:59 Room Air 08/07/17 23:59 36.7 53 18 122/75 (91) 94 Room Air 08/07/17 20:00 96 Room Air 08/07/17 19:01 36.9 60 20 156/78 (104) 96 Room Air Lab Results: Results Past 24 Hours Test 08/07/17 19:59 08/08/17 01:05 08/08/17 06:57 Range/Units Troponin I < 0.015 < 0.015 0-0.045 ng/ml White Blood Count 7.12 4.8-10.8 K/uL Red Blood Count 5.17 4.7-6.1 M/uL Hemoglobin 16.8 14.0-18.0 g/dL Hematocrit 49.8 42-52 % Mean Corpuscular Volume 96.3 80-100 fL Mean Corpuscular Hemoglobin 32.5 25-34 pg Mean Corpuscular Hemoglobin Concent 33.7 32-36 g/dl RDW Standard Deviation 47.5 36.4-46.3 fL RDW Coefficient of Variation 13.5 11.5-14.5 % Platelet Count 192 130-400 K/uL Mean Platelet Volume 9.7 7.4-10.4 fL Sodium Level 137 136-145 mmol/L Potassium Level 4.1 3.5-5.1 mmol/L Chloride Level 105 98-107 mmol/L Carbon Dioxide Level 26 21-32 mmol/L Anion Gap 6.0 3-11 mmol/L Blood Urea Nitrogen 15 7-18 mg/dl Creatinine 0.96 0.60-1.40 mg/dl Est Creatinine Clear Calc Drug Dose 79.2 ml/min Estimated GFR () 95.8 Estimated GFR (Non- 82.6 BUN/Creatinine Ratio 15.8 10-20 Random Glucose 94 70-99 mg/dl Calcium Level 8.6 8.5-10.1 mg/dl Triglycerides Level 274 0-150 mg/dl Cholesterol Level 187 0-200 mg/dl HDL Cholesterol 33 mg/dl LDL Cholesterol, Calculated 99 mg/dl VLDL Cholesterol, Calculated 55 mg/dl Cholesterol/HDL Ratio 5.7
[2017-08-08 19:39] VITALS: BP 112/65; PULSE 56; TEMP 36.9; O2SAT 96
[2017-08-08] MEDS: ENOXAPARIN 40 MG/0.4 ML SYR SC SCH (20:49)
[2017-08-09] VITALS (14 sets, daily range): BP systolic 101–126; BP diastolic 52–74; PULSE 49–92; TEMP 36.7–37; O2SAT 92–98
[2017-08-09] MEDS: LISINOPRIL 10 MG TAB PO SCH (07:49)
[2017-08-09] MEDS: METOPROLOL TARTRATE 25 MG TAB PO SCH (07:49)
[2017-08-09] MEDS: THIAMINE HCL 100 MG TAB PO SCH (07:49)
[2017-08-09] MEDS: MULTIVITAMIN TAB PO SCH (07:49)
[2017-08-09] MEDS: ASPIRIN 81 MG ECTAB PO SCH (07:49)
--- NOTE | 2017-08-09 09:44 | Cardiology Follow-Up ---
Subjective General Date of Service: Aug 09, 2017. Chief Complaint: follow up chest pain Pt evaluation today including: conversation w/ patient, physical exam, chart review, lab review, review of studies, review of inpatient medication list History of Present Illness The patient is a 67 year old male seen in follow-up. Denies chest discomfort or shortness of breath overnight. Sinus rhythm on telemetry with no sustained dysrhythmias. Nuclear stress test demonstrating inferior and septal scar with subtle reversibility as well as a reversible defect in the lateral wall suggesting ischemia. Patient admits to continued tobacco abuse, 1 pack per day. Offers no complaints this time. Allergies Coded Allergies: No Known Allergies (Verified , 08/07/17) Social History Smoking Status: Current Every Day Smoker Hx Tobacco Use In Past Year?: Yes Hx Alcohol Use - Type And Amou: Yes (6 beers per day) Hx Substance Use - Type And Am: No Review of Systems Respiratory: No cough, No wheezing, No shortness of breath, No dyspnea on exertion, No dyspnea at rest, No hemoptysis Cardiac: No chest pain, No orthopnea, No PND, No edema, No claudication, No palpitations Physical Exam Vital Signs Last Vital Signs Documentation Date Time Temp Pulse Resp B/P (MAP) Pulse Ox O2 Delivery O2 Flow Rate FiO2 08/09/17 08:00 Room Air 08/09/17 07:37 36.7 52 16 125/69 (87) 97 Physical Exam Constitutional: Level of Distress: NAD Neck: supple Lungs: Auscultation: no rales/crackles, no rhonchi, expiratory wheezing Cardiovascular: Heart Auscultation: RRR, normal S1, normal S2, no murmurs Peripheral Pulses: Radial Pulse: normal on the right Femoral Pulse: normal on the right Extremities: no cyanosis, no edema, no clubbing, no ulcers Neurologic: Gait & Station: pertinent finding (no focal deficits ) Cranial Nerves: grossly intact Assessment and Plan Assessment and Plan Impression: 1. 67-year-old male with abnormal nuclear stress testing suggesting septal and inferior scar with subtle chiquis-infarct ischemia as well as lateral ischemia. 2. CAD with h/o RCA and LAD BMS 3. Tobacco abuse 4. Dyslipidemia 5. HTN - controlled 6. Noncompliance due to financial constraints Plan/recommendations: Risks, benefits, and alternatives to left heart catheterization with coronary angiography discussed with patient. He is agreeable to the procedure as well as percutaneous intervention if indicated. Due to his history of noncompliance and financial constraints, he would be a bare-metal stent candidate at this time. I have strongly encouraged him to continue current cardiovascular medications as added during this hospitalization. The benefits of these medications were reviewed. Smoking cessation also strongly recommended. All questions answered to his satisfaction. Further recommendations pending results of cardiac catheterization.
[2017-08-09] MEDS ORDERED: MIDAZOLAM HCL 1 MG/ML 2ML VIAL ONE (11:56)
[2017-08-09] MEDS ORDERED: NITROGLYCERIN/D5W 100MCG/ML 20ML SYR ONE (11:56)
[2017-08-09] MEDS ORDERED: HEPARIN SOD (PORCINE) 1000 UNIT/ML 10 ML VIAL ONE (11:56)
[2017-08-09] MEDS ORDERED: FENTANYL CITRATE INJ 50 MCG/1 ML 2 ML VIAL ONE (11:56)
[2017-08-09] MEDS ORDERED: NiCARDipine HCL INJ 2.5 MG/ML 10 ML AMP ONE (11:56)
[2017-08-09] MEDS ORDERED: LIDOCAINE HCL 1% 20 ML VIAL ONE (12:33)
[2017-08-09] MEDS ORDERED: SODIUM CHLORIDE 0.9% 1000ML 1,000 ML IV SCH (12:56)
--- NOTE | 2017-08-09 13:14 | Pre Sedation Assessment ---
Pre Sedation Assessment General Date of Sedation: Aug 09, 2017. Vital Signs Past 12 Hours Date Time Temp Pulse Resp B/P (MAP) Pulse Ox O2 Delivery O2 Flow Rate FiO2 08/09/17 13:00 60 16 112/60 (77) 97 Room Air 08/09/17 12:52 58 16 113/60 (77) 97 Room Air 08/09/17 12:00 Room Air 08/09/17 11:22 36.9 54 16 122/74 (90) 96 Room Air 08/09/17 08:00 Room Air 08/09/17 07:37 36.7 52 16 125/69 (87) 97 Room Air 08/09/17 04:46 36.8 53 18 116/67 (83) 94 Room Air 08/09/17 04:00 Room Air Review Cardiovascular: regular rate, rhythm, no edema Lungs: chest non-tender, lungs clear Pre-Sedation Airway Assessment Smoking Status: Current Every Day Smoker Hx of Sleep Apnea: Yes Hx of difficult intubation: Yes Short Thick Neck: Yes Thyro-mental Distance: > 3 Finger Breadths Oral Cavity: WNL Mallampati Classification: Class II ASA Classification: Class III Procedure Planning Contraindications for Sedation: None Current Medications Reviewed: Yes Notes The planned sedation has been discussed with the patient. Informed Consent was obtained. I have identified the patient, determined the appropriateness of sedation and have assessed the patient immediately prior to the procedure. All medicine(s) and interventions are by my order.
--- NOTE | 2017-08-09 13:14 | Post Sedation Assessment ---
Post Sedation Assessment General Date of Sedation Aug 09, 2017. Vital Signs: Vital Signs Past 12 Hours Date Time Temp Pulse Resp B/P (MAP) Pulse Ox O2 Delivery O2 Flow Rate FiO2 08/09/17 13:00 60 16 112/60 (77) 97 Room Air 08/09/17 12:52 58 16 113/60 (77) 97 Room Air 08/09/17 12:00 Room Air 08/09/17 11:22 36.9 54 16 122/74 (90) 96 Room Air 08/09/17 08:00 Room Air 08/09/17 07:37 36.7 52 16 125/69 (87) 97 Room Air 08/09/17 04:46 36.8 53 18 116/67 (83) 94 Room Air 08/09/17 04:00 Room Air Post Procedure Recovery Score Activity: (2) Moves 4 extremities * Respiration: (2) Deep breath/cough Circulation: (2) +/-20% PreAnes Value Consciousness: (2) Fully Awake Oxygen Saturation: (2) > 92% On Room Air Post Anesthesia Score: 10 Discharge Sedation Level of Care: Fast Track Phase II Post Sedation Plan On clinical assessment, the patient appears to have tolerated the sedation without complications. Patient is recovering as anticipated. Patient will continue to be monitored by nursing and may be discharged when sedation discharge criteria are met per below protocol. Upon Completions of procedure and additional 15 minutes continue every 5 minute vital signs and the P.A.R. score; then discharge to a Phase I or Fast Track to Phase II per the following guidelines: * Discharge Patient to appropriate Phase II area if PAR is 8 or greater or return to pre- procedure baseline. The post - procedure orders will be as directed. * If PAR score is less than 8 or not return to pre-procedure baseline then patient will follow Phase I monitoring till PAR is reached for Phase II. The Phase I may be done in procedure room or may call to secure a Phase I area. * If naloxone or flumazenil are used for reversal, hold in Phase I for an additional 60 -120 minutes before discharge to Phase II. Please call the Sedation Physician to re-evaluate and complete post-note for discharge to Phase II area. Do NOT discharge from procedure sedation or Phase 1 until post- sedation evaluation note is complete by procedure /sedation MD Sedation Discharge Instructions to be given to the patient at discharge to home.
--- NOTE | 2017-08-09 13:32 | Cardiac Catheterization ---
Procedure Note Procedure Date Aug 09, 2017. Pre-Procedure Diagnosis Angina AUC Score 7 Post-Procedure Diagnosis Severe CAD, Normal Intracardiac Pressures Procedure(s) Performed Coronary Angiography, Left Heart Cath Spiral Runner Jordan Patcher Helper(s) Glunt Estimated Blood Loss 15 Medication(s) Fentanyl, Heparin, Nitroglycerin, Versed, Lidocaine 1% Summary of Findings Indication: Unstable angina Access: 6Fr slender right radial artery Catheters: [place] Findings: LAD - 80-90% ostial stenosis, mild diffuse proximal disease, 60-70% focal stenosis just before mid segment stent, mid stent with minimal in-stent restenosis, distal luminal irregularities Circumflex - Hazy 95%+ stenosis involving distal LM, distal circumflex subtotally occluded; OM2 with 50% ostial stenosis, OM3 fills retrograde via left to left collaterals. RCA - Dominant, mild in-stent restenosis in proximal to mid stent, 40% mid segment stent; 50-60% distal stenosis; 60-70% ostial R-PDA stenosis LVEDP - 7 Arterial Closure: TR Band Summary: 1. Severe multivessel coronary artery disease - 95% hazy ostial circumflex stenosis involving distal left main - 80-90% ostial LAD, 60-70% mid LAD - 50-60% distal RCA, 60-70% ostial R-PDA 2. Normal intracardiac filling pressure Recommendations: Recommend transfer to tertiary center for consideration of CABG. In interim continue heparin infusion. Continued ASCVD risk factor modification Hemodynamics Rest Ao: 73/44/58 Final Ao: 98/47/68 LV: 100/7 Recommendations CABG Specimens None Radiation Exposure (mGy) 717 Contrast (mls) 35 Visi Fluids (cc crystalloids) 300 NSS Drains None Anesthesia Moderate Procedural Complication(s) None Disposition PCU ACC Data Cardiac Status Clinical evaluation leading to the procedure CAD Presntation: Unstable angina Anginal Classification: CCS IV Heart Failure: No, NYHA Class: CCS I Cardiogenic Shock w/in 24Hrs: No Cardiac Arrest w/in 24Hrs: No Imaging studies past 6 months: Yes Closure Device Percutaneous Entry Location: Radial Closure Device: Radial Band Recommendations: CABG Intraprocedure Events Significant Dissection: No Perforation: No
[2017-08-09 14:12] LABS: BASO % 0.4 %; BASO ABS # 0.03 K/uL (0-0.2); EOS % 3.1 %; EOS ABS # 0.22 K/uL (0-0.5); HEMATOCRIT 45.4 % (42-52); HEMOGLOBIN 15.8 g/dL (14.0-18.0); IG# 0.02 K/uL (0.00-0.02); LYMPH % 28.7 %; LYMPH ABS # 2.04 K/uL (1.2-3.4); MEAN CELL VOLUME 95.4 fL (80-100); MEAN CORPUSCULAR HEMOGLOBIN 33.2 pg (25-34); MEAN PLATELET VOLUME 9.2 fL (7.4-10.4); MONO % 5.5 %; MONO ABS # 0.39 K/uL (0.11-0.59); PLATELET COUNT 154 K/uL (130-400); RED CELL DISTRIBUTION WIDTH CV 13.3 % (11.5-14.5); RED CELL DISTRIBUTION WIDTH SD 46.4 fL (36.4-46.3)
[2017-08-09 14:13] LABS: MEAN CORPUSCULAR HGB CONC 34.8 g/dl (32-36)
[2017-08-09] MEDS ORDERED: HEPARIN 25,000 UNIT/500ML D5W 500 ML IV SCH (14:15)
--- NOTE | 2017-08-09 14:26 | Cardiology Progress Note ---
Cardiology Progress Note Date of Service Aug 09, 2017. Cardiology Progress Note Patient reassessed on arrival after arrival to telemetry floor post cardiac catheterization. Cath with findings of multivessel CAD. Patient denies any current angina. Feels "fine" at present. Daughter, Laila, at bedside. I had discussed cath findings with her in the cath waiting room earlier. Case discussed by telephone with Dr Stella Gann of CT surgery at [facility] [place] who reviewed pt's cath images which were sent to [email or web address]'s viewing system. Dr Gann accespt pt in transfer for non urgent CABG. Stable from my perspective for pt to have diet. Transfer by [facility] ground when bed available.
[2017-08-09 14:40] LABS: PTT PATIENT 71.8 SECONDS (21.0-31.0)
[2017-08-09] MEDS ORDERED: PRVC40 PO (15:09)
[2017-08-09] MEDS ORDERED: LPR25 PO (15:09)
[2017-08-09] MEDS ORDERED: LSN10 PO (15:09)
[2017-08-09] MEDS ORDERED: ASPEC81 PO (15:09)
--- NOTE | 2017-08-09 16:07 | Progress Note ---
Internal Med Progress Note Date of Service: Aug 09, 2017. Provider Documentation: SUBJECTIVE: resting comfortably no chest pain or sob no nausea afebrile plan for cath today OBJECTIVE: Vital Signs-as noted below Exam: General-alert and oriented. Not in distress ENT-Normal hearing Neck-no neck masses Lungs-cta b/l no wheezing or crackles Heart-S1 and S2 heard regular rate and rhythm no murmurs Abdomen-Soft bowel sounds present non tender no distension Extremities-no edema no erythema Neuro-alert and awake moves extremities Lab data as noted below. ASSESSMENT & PLAN: CHEST PAIN, HISTORY OF CAD Patient presented with increasing episodes of exertional and at rest chest pain , has history of coronary artery disease, has not been seen by a physician or taken his meds since 2011 due to loss of insurance 2005 STEMI S/P BMS to RCA, 2009 STEMI S/P BMS to LAD and cath at that time showed 70% ostial OM and 70% PDA disease cardiac enzymes and ekg unremarkable started on aspirin, b dash and statin nuclear stress test positive s/p cardiac cath today- multi vessel disease plan for non urgent CABG-transferring to [place] HYPERTENSION Blood pressure currently uncontrolled off antihypertensives for the past 6 years started on lisinopril 10 mg daily,and lopresor will monitor. ALCOHOL ABUSE Patient reports drinking approximately 4 beers per day as per h and p No problems with withdrawal in the past monitor for signs of withdrawal Multivitamin, folic acid, thiamine DVT PROPHYLAXIS SQ Lovenox DISPOSITION Transferring to [place] for CABG Vital Signs: Date Time Temp Pulse Resp B/P (MAP) Pulse Ox O2 Delivery O2 Flow Rate FiO2 08/09/17 13:25 49 16 104/63 (77) 95 Room Air 08/09/17 13:10 36.8 92 16 117/67 (84) 92 Room Air 08/09/17 13:00 60 16 112/60 (77) 97 Room Air 08/09/17 12:52 58 16 113/60 (77) 97 Room Air 08/09/17 12:00 Room Air 08/09/17 11:22 36.9 54 16 122/74 (90) 96 Room Air 08/09/17 08:00 Room Air 08/09/17 07:37 36.7 52 16 125/69 (87) 97 Room Air 08/09/17 04:46 36.8 53 18 116/67 (83) 94 Room Air 08/09/17 04:00 Room Air 08/09/17 00:11 37.0 52 17 116/72 (87) 93 Room Air 08/08/17 23:59 Room Air 08/08/17 19:39 36.9 56 18 112/65 (81) 96 Room Air 08/08/17 15:47 Room Air 08/08/17 15:41 36.6 52 18 143/73 (96) 97 Room Air Lab Results: Results Past 24 Hours Test 08/09/17 14:00 Range/Units White Blood Count 7.10 4.8-10.8 K/uL Red Blood Count 4.76 4.7-6.1 M/uL Hemoglobin 15.8 14.0-18.0 g/dL Hematocrit 45.4 42-52 % Mean Corpuscular Volume 95.4 80-100 fL Mean Corpuscular Hemoglobin 33.2 25-34 pg Mean Corpuscular Hemoglobin Concent 34.8 32-36 g/dl Platelet Count 154 130-400 K/uL Mean Platelet Volume 9.2 7.4-10.4 fL Neutrophils (%) (Auto) 62.0 % Lymphocytes (%) (Auto) 28.7 % Monocytes (%) (Auto) 5.5 % Eosinophils (%) (Auto) 3.1 % Basophils (%) (Auto) 0.4 % Neutrophils # (Auto) 4.40 1.4-6.5 K/uL Lymphocytes # (Auto) 2.04 1.2-3.4 K/uL Monocytes # (Auto) 0.39 0.11-0.59 K/uL Eosinophils # (Auto) 0.22 0-0.5 K/uL Basophils # (Auto) 0.03 0-0.2 K/uL RDW Standard Deviation 46.4 36.4-46.3 fL RDW Coefficient of Variation 13.3 11.5-14.5 % Immature Granulocyte % (Auto) 0.3 % Immature Granulocyte # (Auto) 0.02 0.00-0.02 K/uL Prothrombin Time 10.9 9.0-12.0 SECONDS Prothromb Time International Ratio 1.0 0.9-1.1 Activated Partial Thromboplast Time 71.8 21.0-31.0 SECONDS Partial Thromboplastin Ratio 2.8
--- NOTE | 2017-08-09 16:07 | Discharge Instructions ---
Discharge Instructions Date of Service Aug 09, 2017. Admission Reason for Admission: Chest Pain, Left Heart Cath Discharge Discharge Diagnosis / Problem: CAD multi vessel disease plan for cabg Discharge Goals Goal(s): Decrease discomfort Activity Recommendations Activity Level: Up Ad Delphine . Additional Information Patient informed of condition: Yes Advance Directives: Yes DNR: No Level of Care: Other (transferring to [place]) Communicable Disease: No Prognosis: Other (transferring to [facility] for cabg) Tadeo Catheter: No Instructions / Follow-Up Instructions / Follow-Up FOLLOWUP PER [facility] RECOMMENDATIONS Current Hospital Diet Patient's current hospital diet: AHA Diet (Heart Healthy) Discharge Diet Recommended Diet: AHA Diet (Heart Healthy) Pending Studies Studies pending at discharge: no Physician Orders On Transfer IV Therapy: IV NS@100ML/HR Vital Signs: EVERY 8HRS Laboratory Results Lipid Panel Test 08/08/17 06:57 Range/Units Triglycerides Level 274 H 0-150 mg/dl Cholesterol Level 187 0-200 mg/dl HDL Cholesterol 33 mg/dl Cholesterol/HDL Ratio 5.7 LDL Cholesterol, Calculated 99 mg/dl Medical Emergencies . Who to Call and When: Medical Emergencies: If at any time you feel your situation is an emergency, please call 911 immediately. . Non-Emergent Contact Non-Emergency issues call your: Primary Care Provider . . "Provider Documentation" section prepared by Curtis Pan. . Core Measure Problem Core Measures: None
--- NOTE | 2017-08-09 16:08 | Discharge Summary ---
Discharge Summary Date of Service Aug 09, 2017. Discharge Summary Admission Date: Aug 07, 2017 at 15:00 Discharge Date: Aug 09, 2017 Discharge Disposition: Acute care facility ([facility]) Principal Diagnosis: CHEST PAIN CAD MULTIVESSEL DISEASE NEEDS CABG Secondary Diagnoses/Problems: (1) CAD (coronary artery disease) Permanent Comment: 2005 - STEMI, BMS to RCA 10/2009 - STEMI, BMS to LAD, cath showed 70% ostial OM and 70% PDA disease Status: Chronic Procedures: CXR: No acute cardiopulmonary findings ECHO: * Ejection Fraction = 50-55%. * There is a small to moderate size wall motion abnormality involving the mid and apical anterior septum, and apical inferior septum with hypokinesis to akinesis of the segments. * Grade I diastolic dysfunction, (abnormal relaxation pattern). * Aortic valve sclerosis mild, without significant aortic valvular stenosis. S.P CARDIAC CATH: * Summary: 1. Severe multivessel coronary artery disease - 95% hazy ostial circumflex stenosis involving distal left main - 80-90% ostial LAD, 60-70% mid LAD - 50-60% distal RCA, 60-70% ostial R-PDA 2. Normal intracardiac filling pressure Recommendations: Recommend transfer to tertiary center for consideration of CABG. In interim continue heparin infusion. Continued ASCVD risk factor modification Consultations: CARDIOLOGY Medication Reconciliation New Medications: Aspirin (Aspirin EC Low Dose) 81 Mg Ectab 81 MG PO QAM, #30 Lisinopril (Zestril) 10 Mg Tab 10 MG PO QAM, #30 TAB Metoprolol Tartrate (Lopressor) 25 Mg Tab 25 MG PO BID, #60 TAB Pravastatin Sod (Pravastatin Sodium) 40 Mg Tab 40 MG PO DAILY@17, #30 TAB Continued Medications: Multivitamin (Multivitamin) Tab 1 TAB PO DAILY, TAB Nitroglycerin (Nitrostat) 0.4 Mg Tab 0.4 MG UT PRN PRN for chest pain, BTL Discontinued Medications: Aspirin (Aspirin Chewable) 81 Mg Chew 81 MG PO PRN for Pain, TAB Admission Information HPI (per Admitting provider): 67-year-old male who presents to the ER with a chief complaint of chest pain. Patient has history of coronary artery disease with STEMI in 2005 and 2009 S/P stenting. Patient has not been seen by primary care or cardiology since 2011. He reports he lost his job and lost his insurance and also has not taken his medication since that time. Patient reports increasing episodes of chest pain over the past 6 months. He reports that during the previous [place], he noted left- sided chest pain with fatigue and shortness of breath. He would take nitroglycerin and rest and symptoms are improved. He sometimes would have associated diaphoresis, lightheadedness, and near syncope. He developed these symptoms with exertion as well as at rest. He reports that this morning he was watching TV and developed a left-sided chest pain. He denies any radiation of the pain into his jaw, neck, shoulder, or arm. No abdominal pain, nausea, vomiting, or diarrhea. Patient reports an approximately 25 pound weight loss the past 3 months however he has been dieting. He denies any changes in bowel habits. No fevers or chills. He denies any urinary symptoms. In the ER patient's initial troponin is negative, EKG does not show any acute ST changes. Blood pressure is hypertensive, other vitals are stable. Physical Exam (per Admitting): General Appearance: WD/WN, no apparent distress Head: normocephalic, atraumatic Eyes: normal inspection, EOMI, sclerae normal ENT: hearing grossly normal, + pertinent finding (Mucous membranes moist) Neck: supple, no JVD, trachea midline Respiratory/Chest: lungs clear, normal breath sounds, no respiratory distress Cardiovascular: regular rate, rhythm, no edema, normal peripheral pulses Abdomen/GI: normal bowel sounds, non tender, soft, no organomegaly Extremities/Musculoskelatal: normal inspection, no calf tenderness, normal capillary refill Neurologic/Psych: no motor/sensory deficits, alert, normal mood/affect, oriented x 3 Skin: normal color, warm/dry Hospital Course CHEST PAIN, HISTORY OF CAD Patient presented with increasing episodes of exertional and at rest chest pain , has history of coronary artery disease, has not been seen by a physician or taken his meds since 2011 due to loss of insurance 2005 STEMI S/P BMS to RCA, 2009 STEMI S/P BMS to LAD and cath at that time showed 70% ostial OM and 70% PDA disease cardiac enzymes and ekg unremarkable started on aspirin, b dash and statin nuclear stress test positive s/p cardiac cath today- multi vessel disease plan for non urgent CABG-transferring to [facility] HYPERTENSION Blood pressure currently uncontrolled off antihypertensives for the past 6 years started on lisinopril 10 mg daily,and Lopressor will monitor. ALCOHOL ABUSE Patient reports drinking approximately 4 beers per day as per h and p No problems with withdrawal in the past monitor for signs of withdrawal Multivitamin, folic acid, thiamine DVT PROPHYLAXIS SQ Lovenox DISPOSITION Transferring to [facility] for CABG Total time spent on discharge = 35MINUTES This includes examination of the patient, discharge planning, medication reconciliation, and communication with other providers. Discharge Instructions Discharge Instructions Date of Service Aug 09, 2017. Admission Reason for Admission: Chest Pain, Left Heart Cath Discharge Discharge Diagnosis / Problem: CAD multi vessel disease plan for cabg Discharge Goals Goal(s): Decrease discomfort Activity Recommendations Activity Level: Up Ad Delphine . Additional Information Patient informed of condition: Yes Advance Directives: Yes DNR: No Level of Care: Other (transferring to [facility]) Communicable Disease: No Prognosis: Other (transferring to [place] for cabg) Tadeo Catheter: No Instructions / Follow-Up Instructions / Follow-Up FOLLOWUP PER [facility] RECOMMENDATIONS Current Hospital Diet Patient's current hospital diet: AHA Diet (Heart Healthy) Discharge Diet Recommended Diet: AHA Diet (Heart Healthy) Pending Studies Studies pending at discharge: no Physician Orders On Transfer IV Therapy: IV NS@100ML/HR Vital Signs: EVERY 8HRS PLEASE CHECK MEDICATION RECONCILIATION FOR ACCURATE MED LIST Laboratory Results Lipid Panel Test 08/08/17 06:57 Range/Units Triglycerides Level 274 H 0-150 mg/dl Cholesterol Level 187 0-200 mg/dl HDL Cholesterol 33 mg/dl Cholesterol/HDL Ratio 5.7 LDL Cholesterol, Calculated 99 mg/dl Medical Emergencies . Who to Call and When: Medical Emergencies: If at any time you feel your situation is an emergency, please call 911 immediately. . Non-Emergent Contact Non-Emergency issues call your: Primary Care Provider
[2017-08-09] MEDS: PRAVASTATIN SOD 40 MG TAB PO SCH (16:32)
== END 2017-08-09 17:45 | disposition short-term general hospital (02) | DRG 287 ==
LOC: C.EDB 12:13 → C.2T 15:00 → ENRESERV 15:16
PROVIDERS: ADMIT Hospitalist; ATTEND Internal Medicine
PROC: 4A023N7 Measurement of Cardiac Sampling and Pressure, Left Heart, Percutaneous Approach (ICD-10-PCS; principal; 2017-08-09 11:55)
PROC: B211YZZ Fluoroscopy of Multiple Coronary Arteries using Other Contrast (ICD-10-PCS; principal; 2017-08-09 11:55)
DX: I25.110 Atherosclerotic heart disease of native coronary artery with unstable angina pectoris (principal); I10 Essential (primary) hypertension; F10.10 Alcohol abuse, uncomplicated; E78.5 Hyperlipidemia, unspecified; F17.200 Nicotine dependence, unspecified, uncomplicated; Z96.652 Presence of left artificial knee joint; Z91.19 Patient's noncompliance with other medical treatment and regimen; I25.2 Old myocardial infarction; Z79.82 Long term (current) use of aspirin; Z82.49 Family history of ischemic heart disease and other diseases of the circulatory system; Z80.8 Family history of malignant neoplasm of other organs or systems

== ENCOUNTER → 2017-12-13 | Outpatient (CLI) | payer OTHER ==
[~2017-12-13] MED LIST changes: -ALBU1AER9 INH; -ASPCH81X PO; +ASPI-320 PO; +LPR25 PO; +LSN10 PO; +NTRGSL/4 UT; +OPTIRAY 320 IV PRN; +PRVC40 PO
--- NOTE | 2017-12-13 15:47 | DIAGNOSTIC IMAGING REPORT ---
CT ANGIOGRAPHY OF THE ABDOMEN AND PELVIS WITH CONTRAST CLINICAL HISTORY: Aortic dissection on abdominal aortic aneurysm ultrasound screening. COMPARISON STUDY: CT of the abdomen and pelvis October 01, 2013. TECHNIQUE: Helical axial images of the abdomen and pelvis were obtained during arterial phase following intravenous injection 115 cc of Optiray 320 IV. Sagittal and coronal reconstructions were viewed as well as maximal intensity projections on an independent 3-D workstation. FINDINGS: Arterial phase images of the liver, spleen, adrenal glands, kidneys and pancreas are unremarkable. There is no biliary or pancreatic ductal dilatation. No pneumatosis, free air or portal venous gas is present. There is no evidence for a bowel obstruction. There is no ascites. There is extensive atherosclerotic plaque of the abdominal aorta and branch vessels. Note is made of extensive ulcerated plaque within the abdominal aorta which is chronic. This is partially calcified. No dissection is noted. The infrarenal abdominal aorta is ectatic, measuring 2.7 cm. There is mild to moderate stenosis at the origin the right renal artery which is difficult to assess given extensive calcified plaque. IMPRESSION: 1. Ectatic infrarenal abdominal aorta which contains ulcerated plaque which represents a chronic finding that could simulate a dissection by ultrasound. 2. No acute process within the abdomen or pelvis. 3. Mild to moderate stenosis at the origin of the right renal artery. Electronically signed by: Vikas Akers M.D. 12/13/2017 3:46 PM Dictated Date/Time: 12/13/2017 3:35 PM
== END | disposition home or self-care (01) ==
LOC: C.CTS 15:04
PROVIDERS: ATTEND Family Medicine
DX: I71.00 Dissection of unspecified site of aorta (principal)

== ENCOUNTER 2018-04-29 10:19 | Observation (INO) ==
[2018-04-29 10:36] LABS: Basophils # (auto) 0.05 K/uL (0-0.2); Basophils % (auto) 0.5 %; Eosinophils # (auto) 0.26 K/uL (0-0.5); Eosinophils % (auto) 2.7 %; Hematocrit (blood only) 48.4 % (42-52); Hemoglobin 16.2 g/dL (14.0-18.0); Immature Granulocytes # (auto) 0.03 K/uL (0.00-0.02); Immature Granulocytes % (auto) 0.3 %; Lymphocytes # (auto) 1.77 K/uL (1.2-3.4); Lymphocytes % (auto) 18.3 %; Mean Corpuscular Hgb Conc 33.5 g/dL (32-36); Mean Corpuscular Volume 93.6 fL (80-100); Mean Platelet Volume 9.9 fL (7.4-10.4); Monocytes # (auto) 0.49 K/uL (0.11-0.59); Monocytes % (auto) 5.1 %; Neutrophils # (auto) 7.08 K/uL (1.4-6.5); Neutrophils % (auto) 73.1 %; Platelet Count 209 K/uL (130-400); RDW Standard Deviation 44.4 fL (36.4-46.3); Red Blood Count 5.17 M/uL (4.7-6.1); White Blood Count 9.68 K/uL (4.8-10.8)
--- NOTE | 2018-04-29 10:38 | Emergency Department Note ---
Entered by Brianna Nunez acting as a scribe for Deangelo Sanabria DO History of Present Illness General Chief complaint: Cardiac Assessment Stated complaint: chest pain / [place] Source: patient History of Present Illness Onset (ago): hour(s) (morning) Location: chest and right (shoulder) Radiation: non-radiation Pain Consistency: + other (worseing) Quality: + other (feels like someone is tearing at his chest with a knife) Exacerbated By: + movement (lifting heavy objects, walking up steep inclines) Associated symptoms: + denies other symptoms The patient is a 68 year old M who presents to the Emergency Room with complaints of worsening chest pain starting this morning. He states that he was here at the hospital this morning for a cardiac stress test when he started feeling chest pain. He notes that it feels like someone is tearing at his chest with a knife. He adds that he also has right shoulder pain but it does not radiate anywhere. He states that he has gotten these chest pains in the past when he lifts something heavy or is walking up a steep incline (such as a hill). He notes a history of being a smoker. Home Medications Home Medications Medication Instructions Recorded Confirmed Type aspirin 162 mg PO QAM 03/18/18 04/29/18 History atorvastatin 80 mg PO QAM 03/18/18 04/29/18 History metoprolol tartrate 12.5 mg PO BID 03/18/18 04/29/18 History multivitamin 1 tab PO QAM 03/18/18 04/29/18 History nitroglycerin 1 tab SUBLINGUAL UD PRN 03/18/18 04/29/18 History Allergies Allergy/AdvReac Type Severity Reaction Status Date / Time No Known Allergies Allergy Unknown Verified 04/29/18 11:31 Past Med/Surg History Medical History Tobacco use (Chronic) Alcohol use (Chronic) Renal artery stenosis (Chronic) mild-moderate. normal creatinine. BP controlled on one agent Abdominal aortic ectasia (Chronic) 2.8cm HTN (hypertension) (Chronic) Dyslipidemia (Chronic) CAD (coronary artery disease) (Chronic) "2005 - STEMI, BMS to RCA 10/2009 - STEMI, BMS to LAD, cath showed 70% ostial OM and 70% PDA disease" Surgical History History of coronary artery bypass graft (Resolved) CABG x 4. 07/2017 History of appendectomy (Chronic) S/P surgical manipulation of ankle joint (Chronic) S/P left knee arthroscopy (Chronic) H/O shoulder surgery (Chronic) Family History Other CVA (cerebral vascular accident) Diabetes HTN (hypertension) Heart disease Social History Current Living Situation: Alone Other Information That Helps Us Care for You: No Feels Safe at Home: Yes Safety Concerns: Feels Safe At This Time Smoking Status: Current every day smoker Tobacco Type: cigarettes Cigarettes per Day: 10 Do You Dip or Chew Tobacco: No Second Hand Exposure: No Tobacco Cessation Education Requested by Patient: No Hx Alcohol Use: Yes Alcohol type: beer Alcohol Intake Frequency: 3 or more drinks per day Alcohol Intake Frequency Comment: 5 beers daily Hx Substance Use: No Beliefs That Will Affect Care: None Preferred Language: Vietnamese Communication Ability: Effective Review of Systems See HPI for pertinent positives & negatives. and A total of 10 systems reviewed and were otherwise negative Physical Exam Vital Signs Vital Signs - 24 hr 04/29/18 10:28 04/29/18 10:35 04/29/18 11:18 Temperature 36.8 C Temperature Source Oral Sepsis Recent Fever Within 48 Hours No Sepsis New/Unexplained Change in Mental Status No Sepsis Action Taken by Nursing No Action Required Pulse Rate 62 Pulse Rate [Apical] 60 Pulse Rhythm [Apical] Pulse Strength [Apical] Respiratory Rate 16 16 Respiratory Effort / Characteristics Non-Labored Respiratory Depth Normal Respiratory Pattern Blood Pressure 139/81 Blood Pressure [Right Arm] 130/60 Blood Pressure Mean 100 Blood Pressure Mean [Right Arm] 83 Blood Pressure Position [Right Arm] Pulse Oximetry 96 98 98 Oxygen Delivery Method Room Air Room Air Room Air 04/29/18 12:56 04/29/18 13:12 04/29/18 13:43 Temperature Temperature Source Sepsis Recent Fever Within 48 Hours Sepsis New/Unexplained Change in Mental Status Sepsis Action Taken by Nursing Pulse Rate 66 Pulse Rate [Apical] 64 Pulse Rhythm [Apical] Pulse Strength [Apical] Respiratory Rate 16 14 Respiratory Effort / Characteristics Non-Labored Spontaneous Non-Labored Spontaneous Respiratory Depth Normal Normal Respiratory Pattern Regular Regular Blood Pressure Blood Pressure [Right Arm] 126/71 139/82 Blood Pressure Mean Blood Pressure Mean [Right Arm] 89 Blood Pressure Position [Right Arm] Pulse Oximetry 96 100 Oxygen Delivery Method Room Air Room Air Room Air 04/29/18 14:55 04/29/18 15:05 04/29/18 15:10 Temperature 36.5 C 36.6 C Temperature Source Oral Oral Sepsis Recent Fever Within 48 Hours Sepsis New/Unexplained Change in Mental Status Sepsis Action Taken by Nursing Pulse Rate Pulse Rate [Apical] 78 63 63 Pulse Rhythm [Apical] Regular Regular Regular Pulse Strength [Apical] Normal Normal Normal Respiratory Rate 18 18 Respiratory Effort / Characteristics Non-Labored Non-Labored Respiratory Depth Normal Normal Respiratory Pattern Regular Regular Blood Pressure Blood Pressure [Right Arm] 147/78 H 145/68 H Blood Pressure Mean Blood Pressure Mean [Right Arm] 101 93 Blood Pressure Position [Right Arm] Lying Lying Pulse Oximetry 99 99 Oxygen Delivery Method Room Air Room Air 04/29/18 15:25 Temperature 36.6 C Temperature Source Oral Sepsis Recent Fever Within 48 Hours Sepsis New/Unexplained Change in Mental Status Sepsis Action Taken by Nursing Pulse Rate Pulse Rate [Apical] 64 Pulse Rhythm [Apical] Regular Pulse Strength [Apical] Normal Respiratory Rate 19 Respiratory Effort / Characteristics Non-Labored Respiratory Depth Normal Respiratory Pattern Regular Blood Pressure Blood Pressure [Right Arm] 125/67 Blood Pressure Mean Blood Pressure Mean [Right Arm] 86 Blood Pressure Position [Right Arm] Lying Pulse Oximetry 99 Oxygen Delivery Method Room Air GENERAL: Patient is awake alert in no acute distress patient is resting comfortably and showing no signs of anxiety EYES: The conjunctivae are clear. The pupils are round and reactive. EARS, NOSE, MOUTH AND THROAT: The nose is without any evidence of any deformity. Mucous membranes are moist tongue is midline NECK: The neck is nontender and supple. RESPIRATORY: There are scattered rhonchi noted throughout. There is no tachypnea or conversational dyspnea appreciated. CARDIOVASCULAR: Regular rate and rhythm noted there no murmurs rubs or gallops normal S1 normal S2 GASTROINTESTINAL: The abdomen is soft. Bowel sounds are present in all quadrants. Abdomen is nontender MUSCULOSKELETAL/EXTREMITIES: There is no evidence of gross deformity full range of motion is noted in the hips and shoulders SKIN: There is no obvious evidence of any rash. There are no petechiae, pallor or cyanosis noted. NEUROLOGIC: Patient is awake alert and oriented x3. Course Administered Medications Discontinued Medications Fentanyl Citrate (Fentanyl Citrate) Confirm Administered Dose 100 mcg .ROUTE .STK-MED ONE Stop: 04/29/18 13:37 Last Increment: 04/29/18 14:26 Dose: 50 mcg Midazolam HCl (Versed) Confirm Administered Dose 2 mg .ROUTE .STK-MED ONE Stop: 04/29/18 13:37 Last Increment: 04/29/18 14:26 Dose: 1 mg Medical Decision Making Laboratory Data Result diagrams: 04/29/18 10:20 04/29/18 10:20 Lab Results 04/29/18 04/29/18 04/29/18 Range/Units 10:20 10:20 10:20 WBC 9.68 (4.8-10.8) K/uL RBC 5.17 (4.7-6.1) M/uL Hgb 16.2 (14.0-18.0) g/dL POC Hgb (14.0-18.0) g/dl Hct 48.4 (42-52) % POC Hct (42-52) % MCV 93.6 (80-100) fL MCH 31.3 (25-34) pg MCHC 33.5 (32-36) g/dL RDW Std Deviation 44.4 (36.4-46.3) fL RDW Coeff of Ameena 13.0 (11.5-14.5) % Plt Count 209 (130-400) K/uL MPV 9.9 (7.4-10.4) fL Immature Gran % (Auto) 0.3 % Neut % (Auto) 73.1 % Lymph % (Auto) 18.3 % [place] % (Auto) 5.1 % Eos % (Auto) 2.7 % Baso % (Auto) 0.5 % Immature Gran # (Auto) 0.03 H (0.00-0.02) K/uL Neut # (Auto) 7.08 H (1.4-6.5) K/uL Lymph # (Auto) 1.77 (1.2-3.4) K/uL [place] # (Auto) 0.49 (0.11-0.59) K/uL Eos # (Auto) 0.26 (0-0.5) K/uL Baso # (Auto) 0.05 (0-0.2) K/uL PT Cancelled INR Cancelled APTT Cancelled PTT Ratio Cancelled POC Sodium (135-144) mEq/L Sodium 137 (136-145) mmol/L POC Potassium (3.3-5.0) mEq/L Potassium 4.3 (3.5-5.1) mmol/L POC Chloride (101-112) mEq/L Chloride 105 (98-107) mmol/L Carbon Dioxide 26 (21-32) mmol/L POC Total CO2 (24-31) mEq/l Anion Gap 6.0 (3-11) POC Anion Gap (16-25) mmol/L POC BUN (7-18) mg/dl BUN 13 (7-18) mg/dl Creatinine 1.07 (0.6-1.4) mg/dl POC Creatinine (0.6-1.3) mg/dl Est Cr Clr Drug Dosing 70.1 ml/min Est GFR ( Amer) 83.4 Est GFR (Non-Af Amer) 72.0 BUN/Creatinine Ratio 12.5 (10-20) Glucose 107 H (70-99) mg/dl POC Glucose (other) (70-99) mg/dl Calcium 9.4 (8.5-10.1) mg/dl POC Ioniz Calcium Tucker (1.12-1.32) mmol/l Total Bilirubin 0.8 (0.1-1) mg/dl AST 23 (15-37) U/L ALT 36 (12-78) U/L Alkaline Phosphatase 97 (45-117) U/L POC Troponin I (0-0.045) ng/ml Total Protein 8.1 (6.4-8.2) gm/dl Albumin 3.9 (3.4-5.0) gm/dl Globulin 4.2 H (2.5-4.0) gm/dl Albumin/Globulin Ratio 0.9 (0.9-2) Lipase 149 (73-393) U/L 04/29/18 04/29/18 04/29/18 Range/Units 10:30 10:32 11:10 WBC (4.8-10.8) K/uL RBC (4.7-6.1) M/uL Hgb (14.0-18.0) g/dL POC Hgb 17.0 (14.0-18.0) g/dl Hct (42-52) % POC Hct 50 (42-52) % MCV (80-100) fL MCH (25-34) pg MCHC (32-36) g/dL RDW Std Deviation (36.4-46.3) fL RDW Coeff of Ameena (11.5-14.5) % Plt Count (130-400) K/uL MPV (7.4-10.4) fL Immature Gran % (Auto) % Neut % (Auto) % Lymph % (Auto) % [place] % (Auto) % Eos % (Auto) % Baso % (Auto) % Immature Gran # (Auto) (0.00-0.02) K/uL Neut # (Auto) (1.4-6.5) K/uL Lymph # (Auto) (1.2-3.4) K/uL [place] # (Auto) (0.11-0.59) K/uL Eos # (Auto) (0-0.5) K/uL Baso # (Auto) (0-0.2) K/uL PT 10.3 INR 1.0 APTT 25.5 PTT Ratio 1.0 POC Sodium 140 (135-144) mEq/L Sodium (136-145) mmol/L POC Potassium 4.3 (3.3-5.0) mEq/L Potassium (3.5-5.1) mmol/L POC Chloride 102 (101-112) mEq/L Chloride (98-107) mmol/L Carbon Dioxide (21-32) mmol/L POC Total CO2 24 (24-31) mEq/l Anion Gap (3-11) POC Anion Gap 20.0 (16-25) mmol/L POC BUN 14 (7-18) mg/dl BUN (7-18) mg/dl Creatinine (0.6-1.4) mg/dl POC Creatinine 1.0 (0.6-1.3) mg/dl Est Cr Clr Drug Dosing ml/min Est GFR ( Amer) Est GFR (Non-Af Amer) BUN/Creatinine Ratio (10-20) Glucose (70-99) mg/dl POC Glucose (other) 116 H (70-99) mg/dl Calcium (8.5-10.1) mg/dl POC Ioniz Calcium Tucker 1.19 (1.12-1.32) mmol/l Total Bilirubin (0.1-1) mg/dl AST (15-37) U/L ALT (12-78) U/L Alkaline Phosphatase (45-117) U/L POC Troponin I < 0.03 (0-0.045) ng/ml Total Protein (6.4-8.2) gm/dl Albumin (3.4-5.0) gm/dl Globulin (2.5-4.0) gm/dl Albumin/Globulin Ratio (0.9-2) Lipase (73-393) U/L 04/29/18 Range/Units 15:23 WBC (4.8-10.8) K/uL RBC (4.7-6.1) M/uL Hgb (14.0-18.0) g/dL POC Hgb (14.0-18.0) g/dl Hct (42-52) % POC Hct (42-52) % MCV (80-100) fL MCH (25-34) pg MCHC (32-36) g/dL RDW Std Deviation (36.4-46.3) fL RDW Coeff of Ameena (11.5-14.5) % Plt Count (130-400) K/uL MPV (7.4-10.4) fL Immature Gran % (Auto) % Neut % (Auto) % Lymph % (Auto) % [place] % (Auto) % Eos % (Auto) % Baso % (Auto) % Immature Gran # (Auto) (0.00-0.02) K/uL Neut # (Auto) (1.4-6.5) K/uL Lymph # (Auto) (1.2-3.4) K/uL [place] # (Auto) (0.11-0.59) K/uL Eos # (Auto) (0-0.5) K/uL Baso # (Auto) (0-0.2) K/uL PT INR APTT 25.9 PTT Ratio 1.0 POC Sodium (135-144) mEq/L Sodium (136-145) mmol/L POC Potassium (3.3-5.0) mEq/L Potassium (3.5-5.1) mmol/L POC Chloride (101-112) mEq/L Chloride (98-107) mmol/L Carbon Dioxide (21-32) mmol/L POC Total CO2 (24-31) mEq/l Anion Gap (3-11) POC Anion Gap (16-25) mmol/L POC BUN (7-18) mg/dl BUN (7-18) mg/dl Creatinine (0.6-1.4) mg/dl POC Creatinine (0.6-1.3) mg/dl Est Cr Clr Drug Dosing ml/min Est GFR ( Amer) Est GFR (Non-Af Amer) BUN/Creatinine Ratio (10-20) Glucose (70-99) mg/dl POC Glucose (other) (70-99) mg/dl Calcium (8.5-10.1) mg/dl POC Ioniz Calcium Tucker (1.12-1.32) mmol/l Total Bilirubin (0.1-1) mg/dl AST (15-37) U/L ALT (12-78) U/L Alkaline Phosphatase (45-117) U/L POC Troponin I (0-0.045) ng/ml Total Protein (6.4-8.2) gm/dl Albumin (3.4-5.0) gm/dl Globulin (2.5-4.0) gm/dl Albumin/Globulin Ratio (0.9-2) Lipase (73-393) U/L MDM Narrative The patient is a 68-year-old male who presented to the emergency department for an evaluation of chest discomfort. The patient has a history of coronary artery bypass grafting. He currently does take antiplatelet therapy but continues to smoke tobacco products. The patient was having scapular pain which was worsened with exertion. He was seen by his primary conservation worker today and had a stress test which was read as grossly abnormal. The patient was noted to have significant ST segment depression with T wave abnormalities. He was sent to the emergency department for further evaluation. The patient was asymptomatic upon arrival. He was treated with aspirin and nitroglycerin prior to arrival. His primary conservation worker did notify the hot dip plater as well as the [facility] conservation worker prior to the patient's arrival. The patient had an EKG which did not show any acute ST segment changes and his troponin was negative. I discussed his case with the on-call [facility] hospitalist as well as the hot dip plater. They have agreed to evaluate the patient for further management and disposition. The patient was reevaluated multiple times. Impression & Plan Chest pain, Abnormal stress test Discharge Plan Visit Data Chief Complaint: Cardiac Assessment Stated Complaint: chest pain / [place] ED Provider: Deangelo Sanabria Discharge Problem: Chest pain, Abnormal stress test Patient Disposition: Still a Patient Discharge Instructions Interventions: ED Discharge Assessment Last Done: 04/29/18 13:26 The scribe's documentation has been prepared under my direction and personally reviewed by me in its entirety. I confirm that the note above accurately reflects all work, treatment, procedures, and medical decision making performed by me.
[2018-04-29 10:44] LABS: iSTAT Ionized Calcium 1.19 mmol/l (1.12-1.32)
--- NOTE | 2018-04-29 10:48 | XRay Report ---
XR chest 1V portable CLINICAL HISTORY: Chest Pain COMPARISON STUDY: 03/18/2018 FINDINGS: The right lung base is now clear. The lungs are clear. Prior median sternotomy. Diaphragms smooth. IMPRESSION: No acute process. Lungs are now clear. The above report was generated using voice recognition software. It may contain grammatical, syntax or spelling errors. Electronically signed by: Zak Pino M.D. 04/29/2018 10:47 AM
[2018-04-29 10:55] LABS: Albumin Level 3.9 gm/dl (3.4-5.0); BUN Creatinine Ratio 12.5 (10-20); Calcium 9.4 mg/dl (8.5-10.1); Creatinine Clr Calc Pharmacy 70.1 ml/min; Est GFR (African American) 83.4; Potassium 4.3 mmol/L (3.5-5.1)
[2018-04-29 10:58] LABS: Albumin Globulin Ratio 0.9 (0.9-2); Bilirubin,Total 0.8 mg/dl (0.1-1); Globulin 4.2 gm/dl (2.5-4.0); Total Protein 8.1 gm/dl (6.4-8.2)
[2018-04-29 11:25] LABS: Partial Thromboplastin Time 25.5 Seconds (21.0-31.0); Prothrombin Time 10.3 Seconds (9.0-12.0)
--- NOTE | 2018-04-29 12:27 | History & Physical Report ---
Date of Service April 29, 2018 Assessment & Plan (1) Positive cardiac stress test: (2) CAD (coronary artery disease): Patient is a 68-year-old male with a PMH of CAD (s/p CABG in September 2017), ischemic heart disease, HTN, HLD, tobacco use disorder, heavy alcohol use, COPD and other medical issues listed below who presents from [facility] clinic with positive exercise stress test. -H/o CABG in July 2017, h/o stents to RCA and LAD previously -Has been having R scapular pain with exertion for past few months -Exercise stress echo performed today at [facility] this morning: * Demonstrates a fixed mid and apical septal wall motion abnormality with evidence of inducible ischemia involving the anterior and lateral [place]. * Test terminated due to progressive dyspnea and left sided scapular discomfort. Discomfort relieved with 2 sublingual nitroglycerin during recovery. * The stress EKG response was markedly abnormal consistent with ischemia due to 2+mm ST depression from baseline. ST-segments normalized after 10 minutes of the recovery period." Was sent to ED for further evaluation. -Asymptomatic upon arrival. Hemodynamically stable and no EKG changes -ED physician spoke to Dr. Ortega, who plans on cardiac catheterization this afternoon -Admit to telemetry in the interim. Keep NPO. Trend troponin. (3) Tobacco use: Resumed smoking 1/2 ppd in December -Significant smoking history -Counseled regarding smoking cessation (4) Alcohol use: Endorses 4-6 beers daily -Denies withdrawal symptoms -IV ativan PRN for withdrawal protocol -Initiate gabapentin, thiamine and folate this afternoon following cath (5) HTN (hypertension): Normotensive. Continue home dose lopressor BID, lisinopril (6) Dyslipidemia: Continue statin DVT Ppx: SCDs for now Code status: DNR per discussion with patient PCP: Dr. Albert Dispo: Observation telemetry. Will change to full admit tomorrow if needed. Plan to return home once medically stable. Patient seen in collaboration with Dr. Martinez. Please see addendum. History of Present Illness Chief Complaint: positive ST Primary Care Provider: Gisselle Albert Patient is a 68-year-old male with a PMH of CAD (s/p CABG in September 2017), ischemic heart disease, HTN, HLD, tobacco use disorder, heavy alcohol use, COPD and other medical issues listed below who presents from [facility] with positive exercise stress test with the following report: "demonstrates a fixed mid and apical septal wall motion abnormality with evidence of inducible ischemia involving the anterior and lateral [place]. Test terminated due to progressive dyspnea and left sided scapular discomfort. Discomfort relieved with 2 sublingual nitroglycerin during recovery. The stress EKG response was markedly abnormal consistent with ischemia due to 2+mm ST depression from baseline.ST-segments normalized after 10 minutes of the recovery period." Was sent to ED for further evaluation. Patient states that ever since CABG in July 2017, he has experienced right shoulder pain with any exertion. Pain usually subsides with sublingual nitroglycerin. Resumed smoking in December and reports 1/2 ppd. Drinking 4-6 beers daily. Denies any fever, chills, headache, lightheadedness, chest pain, palpitations, shortness of breath, abdominal pain, nausea, vomiting, dysuria, diarrhea, constipation or lower extremity swelling. Upon arrival, patient continued to be asymptomatic. Hemodynamically stable and no EKG changes. ED physician spoke to Dr. Ortega, who plans on cardiac catheterization this afternoon. Allergies Allergy/AdvReac Type Severity Reaction Status Date / Time No Known Allergies Allergy Unknown Verified 04/29/18 11:31 Home Medications Home Medications Medication Instructions Recorded Confirmed Type aspirin 162 mg PO QAM 03/18/18 04/29/18 History atorvastatin 80 mg PO QAM 03/18/18 04/29/18 History metoprolol tartrate 12.5 mg PO BID 03/18/18 04/29/18 History multivitamin 1 tab PO QAM 03/18/18 04/29/18 History nitroglycerin 1 tab SUBLINGUAL UD PRN 03/18/18 04/29/18 History Past Med/Surg History Medical History Tobacco use (Chronic) Alcohol use (Chronic) Renal artery stenosis (Chronic) mild-moderate. normal creatinine. BP controlled on one agent Abdominal aortic ectasia (Chronic) 2.8cm HTN (hypertension) (Chronic) Dyslipidemia (Chronic) CAD (coronary artery disease) (Chronic) "2005 - STEMI, BMS to RCA 10/2009 - STEMI, BMS to LAD, cath showed 70% ostial OM and 70% PDA disease" Surgical History History of coronary artery bypass graft (Resolved) CABG x 4. 07/2017 History of appendectomy (Chronic) S/P surgical manipulation of ankle joint (Chronic) S/P left knee arthroscopy (Chronic) H/O shoulder surgery (Chronic) Family History Other CVA (cerebral vascular accident) Diabetes HTN (hypertension) Heart disease Social History Current Living Situation: Alone Other Information That Helps Us Care for You: No Feels Safe at Home: Yes Safety Concerns: Feels Safe At This Time Smoking Status: Current every day smoker Tobacco Type: cigarettes Cigarettes per Day: 10 Do You Dip or Chew Tobacco: No Second Hand Exposure: No Tobacco Cessation Education Requested by Patient: No Hx Alcohol Use: Yes Alcohol type: beer Alcohol Intake Frequency: 3 or more drinks per day Alcohol Intake Frequency Comment: 5 beers daily Hx Substance Use: No Beliefs That Will Affect Care: None Preferred Language: Swedish Communication Ability: Effective Review of Systems All systems reviewed & are unremarkable except as noted in HPI & below Physical Exam 2 Vital Signs (Past 24 Hours): Last Vital Signs Temp 36.8 C 04/29/18 10:28 Pulse 60 04/29/18 11:18 Resp 16 04/29/18 11:18 BP 130/60 04/29/18 11:18 Pulse Ox 98 04/29/18 11:18 Physical Exam: General Appearance: WD/WN, no apparent distress. Resting comfortably Head: normocephalic, atraumatic Eyes: normal inspection, PERRL, EOMI ENT: hearing grossly normal, pharynx normal (moist mucous membranes) Neck: supple, no JVD, no adenopathy Respiratory/Chest: lungs clear to auscultation. No wheezes, rales or rhonci. No respiratory distress or accessory muscle use Cardiovascular: Midline chest scar. No chest wall tenderness. Regular rate, rhythm, no murmur, normal peripheral pulses Abdomen/GI: normal bowel sounds, soft, non-tender to palpation Extremities/Musculoskelatal: normal inspection, no calf tenderness, normal capillary refill, no pedal edema Neurologic/Psych: alert, normal mood/affect, oriented x 3 Skin: normal color, warm/dry Results & Data Laboratory Results Short CBC 04/29/18 Range/Units 10:20 WBC 9.68 (4.8-10.8) K/uL Hgb 16.2 (14.0-18.0) g/dL Hct 48.4 (42-52) % Plt Count 209 (130-400) K/uL BMP 04/29/18 10:20 Sodium 137 Potassium 4.3 Chloride 105 Carbon Dioxide 26 BUN 13 Creatinine 1.07 Glucose 107 H Calcium 9.4 Liver Function 04/29/18 Range/Units 10:20 Total Bilirubin 0.8 (0.1-1) mg/dl AST 23 (15-37) U/L ALT 36 (12-78) U/L Alkaline Phosphatase 97 (45-117) U/L Albumin 3.9 (3.4-5.0) gm/dl Diagnostic Findings CXR: IMPRESSION: No acute process. Lungs are now clear. Code Status & VTE Plan Code Status DNR Supervising Physician Co-Signing Physician Notes Attending Note: Patient is seen and examined at bedside. Patient had cardiac cath today by which showed severe multi vessel gambell CAD;Complex left main bifurcation stenosis and heavily calcified mid RCA and the recommendation is to get complex PCI at a tertiary care center. Patient is asymptomatic post cath and currently denies any chest pain, SOB, dizziness. Vitals are stable. Chest is CTA and has decreased breath sounds , S1, S2, no murmur, no pedal edema. Plan to transfer to [facility] if accepted today for complex PCI. Patient is counseled to quit smoking. I personally reviewed the record. Patient is interviewed and examined at bedside. Patient's care is coordinated with Mariela Kuhn PA-C. Please refer to the documentation above for details of patient's presentation and for discussion of other issues.
--- NOTE | 2018-04-29 13:26 | Post Anesthesia Assessment ---
Date of Service April 29, 2018 Post Sedation Assessment Vital Signs Temp Pulse Pulse Resp BP BP Pulse Ox 04/29/18 13:43 66 14 139/82 100 04/29/18 12:56 64 16 126/71 96 04/29/18 11:18 60 16 130/60 98 04/29/18 10:35 98 04/29/18 10:28 36.8 C 62 16 139/81 96 Recovery Score Activity: Moves 4 extremities Respiration: Deep Breath/Cough Circulation: +/-20% PreAnes Value Consciousness: Fully Awake Oxygen Saturation: O2 needed for >90% Discharge Sedation Level of Care: Fast Track Phase II Post Sedation Plan On clinical assessment, the patient appears to have tolerated the sedation without complications. Patient is recovering as anticipated. Patient will continue to be monitored by nursing and may be discharged when sedation discharge criteria are met per below protocol. Upon Completions of procedure and additional 15 minutes continue every 5 minute vital signs and the P.A.R. score; then discharge to a Phase I or Fast Track to Phase II per the following guidelines: * Discharge Patient to appropriate Phase II area if PAR is 8 or greater or return to pre- procedure baseline. The post - procedure orders will be as directed. * If PAR score is less than 8 or not return to pre-procedure baseline then patient will follow Phase I monitoring till PAR is reached for Phase II. The Phase I may be done in procedure room or may call to secure a Phase I area. * If naloxone or flumazenil are used for reversal, hold in Phase I for continued monitoring from when last reversal dose was given for a minimum of 60 minutes or longer pending the nurse and/or physician discretion of patient condition before discharge to Phase II. Please call the Sedation Physician to re-evaluate and complete post-note for discharge to Phase II area. Do NOT discharge from procedure sedation or Phase 1 until post- sedation evaluation note is complete by procedure /sedation MD Sedation Discharge Instructions to be given to the patient at discharge to home.
--- NOTE | 2018-04-29 13:26 | Pre Anesthesia Assessment ---
Date of Service April 29, 2018 Pre Sedation Assessment Vital Signs Temp Pulse Pulse Resp BP BP Pulse Ox 04/29/18 12:56 64 16 126/71 96 04/29/18 11:18 60 16 130/60 98 04/29/18 10:35 98 04/29/18 10:28 36.8 C 62 16 139/81 96 Cardiovascular RRR, no murmur, no edema Respiratory normal respiratory effort, lungs clear to auscultation Pre-Sedation Airway Assessment Smoking Status: Current every day smoker Hx Sleep Apnea: No Hx Difficult Intubation: No Short, Thick Neck: No Thyromental Distance: > or= 3.5 Finger Breadths Oral Cavity: + Dental Abnormalities Mallampati Class: II Procedure Planning Contraindications for Sedation: none Current Medications Reviewed: Yes Notes The planned sedation has been discussed with the patient. Informed Consent was obtained. I have identified the patient, determined the appropriateness of sedation and have assessed the patient immediately prior to the procedure. All medicine(s) and interventions are by my order.
--- NOTE | 2018-04-29 13:28 | Cardiac Catheterization ---
Cardiac Cath Procedure Full Procedure Date April 29, 2018 Pre-Procedure Diagnosis Pre-Procedure Diagnosis: Angina and Positive Stress Test AUC Score AUC Score: 7 Post-Procedure Diagnosis Post-Procedure Diagnosis: Severe CAD Procedure(s) Performed Procedure(s) Performed: Coronary Angiography, Left Heart Cath, Bypass Graft Angiography and Femoral Artery Angiography Truck And Transport Mechanic Himanshu Ortega MD Career And Transition Teacher(s) [place] Estimated Blood Loss Estimated Blood Loss: 10 Medication(s) Medication(s): Fentanyl, Heparin, Lidocaine 1% and Versed Summary of Findings Indication: Accelerating angina, positive stress test Access: 6 [place] right common femoral artery Catheters: JL4, JR4 Findings: LAD - 95% ostial/proximal stenosis, 60-70% focal stenosis just before mid segment stent, mid stent with minimal in-stent restenosis, competitive flow from ALLEN in mid segment after stent. Circumflex - Hazy 95%+ stenosis involving distal LM, 99% calcifided mid circumflex prior to OM2. distal circumflex subtotally occluded and OM3 fills retrograde via left to left collaterals. RCA - Dominant, mild in-stent restenosis in proximal to mid stent, 40-50% mid segment stent; 60% distal stenosis; 60-70% ostial R-PDA stenosis. Competitive flow in R-PDA. ALLEN-LAD - Widely patent; distal LAD after anastomosis without significant disease. Some retrofilling into diagonal. SVG-Diagonal - Tiny graft with diffuse disease and subtotal occlusion at anastomosis. SVG-OM1 - Occluded SVG-PDA - Widely patent, retrofills into distal RCA. LVEDP -10 Arterial Closure: Heavily calcified right common femoral artery. Mynx closure attempted but failed and final hemostasis with manual compression Summary: 1. Severe multi vessel [place] coronary artery disease -95% ostial/proximal LAD 95% ostial circumflex, 99% calcified mid circumflex 2. Widely patent ALLEN to LAD, SVG to right PDA. SVG to first diagonal subtotally occluded, SVG to OM occluded 3. Normal intracardiac filling pressure Recommendations: Complex left main bifurcation stenosis and heavily calcified mid RCA. Recommend transfer to [facility] for complex PCI Hemodynamics Rest Ao:: 94/45/66 Final Ao: 142/74/100 LV: 116/10 Recommendations Recommendations: PCI without planned CABG Specimens Specimens: None Radiation Exposure (mGy) 1256 Contrast (mls) 70 Fluids (cc crystalloids) Fluids (cc crystalloids): 75 Drains Drains: None Anesthesia Moderate Procedural Complication(s) None Disposition PCU ACC Data: Cardiac/Vascular Sonographer Cardiac Status Clinical evaluation leading to the procedure CAD Presenation: Positive Stress Test Anginal Classification: CCS III Heart Failure: No Cardiogenic Shock within 24 Hours: No Cardiac Arrest within 24 Hours: No Imaging Studies Past 6 Months: Yes Stress Studies Past 6 Months: Yes Stress Echocardiogram: Yes - Positive Diagnostic Physicians Name: Himanshu Ortega MD Status: Elective Closure Device Percutaneous Entry Location: Femoral Closure Device: Mynx and None-Manual Hold Recommendations: PCI without planned CABG Intraprocedure Events Significant Disection: No Perforation: No
[2018-04-29] MEDS ORDERED: MIDAZOLAM HCL 1 MG/ML 2ML VIAL ONE (13:36)
[2018-04-29] MEDS ORDERED: fentaNYL citrate 100 MCG/2 ML VIAL ONE (13:36)
[2018-04-29] MEDS ORDERED: ONDANSETRON INJ 2 MG/ML 2 ML VIAL IV PRN (14:55)
[2018-04-29] MEDS ORDERED: SODIUM CHLORIDE 0.9% 1000ML 1,000 ML IV SCH (15:00)
[2018-04-29] MEDS ORDERED: NITROGLYCERIN SL 0.4 MG/TAB TAB SL PRN (15:05)
[2018-04-29] MEDS ORDERED: LORazepam 1 MG/2 ML VIAL IV PRN (15:05)
[2018-04-29] MEDS ORDERED: Heparin IV Standard *NO* Bolus SCH (15:30)
[2018-04-29 15:42] LABS: Partial Thromboplastin Time 25.9 Seconds (21.0-31.0)
--- NOTE | 2018-04-29 15:52 | Discharge Summary ---
Date of Service April 29, 2018 Admission HPI Per Admitting Provider Patient is a 68-year-old male with a PMH of CAD (s/p CABG in September 2017), ischemic heart disease, HTN, HLD, tobacco use disorder, heavy alcohol use, COPD and other medical issues listed below who presents from [facility] with positive exercise stress test with the following report: "demonstrates a fixed mid and apical septal wall motion abnormality with evidence of inducible ischemia involving the anterior and lateral [place]. Test terminated due to progressive dyspnea and left sided scapular discomfort. Discomfort relieved with 2 sublingual nitroglycerin during recovery. The stress EKG response was markedly abnormal consistent with ischemia due to 2+mm ST depression from baseline.ST-segments normalized after 10 minutes of the recovery period." Was sent to ED for further evaluation. Patient states that ever since CABG in July 2017, he has experienced right shoulder pain with any exertion. Pain usually subsides with sublingual nitroglycerin. Resumed smoking in December and reports 1/2 ppd. Drinking 4-6 beers daily. Denies any fever, chills, headache, lightheadedness, chest pain, palpitations, shortness of breath, abdominal pain, nausea, vomiting, dysuria, diarrhea, constipation or lower extremity swelling. Upon arrival, patient continued to be asymptomatic. Hemodynamically stable and no EKG changes. ED physician spoke to Dr. Ortega, who plans on cardiac catheterization this afternoon. Admission Exam Per Admitting Provider General Appearance: WD/WN, no apparent distress. Resting comfortably Head: normocephalic, atraumatic Eyes: normal inspection, PERRL, EOMI ENT: hearing grossly normal, pharynx normal (moist mucous membranes) Neck: supple, no JVD, no adenopathy Respiratory/Chest: lungs clear to auscultation. No wheezes, rales or rhonci. No respiratory distress or accessory muscle use Cardiovascular: Midline chest scar. No chest wall tenderness. Regular rate, rhythm, no murmur, normal peripheral pulses Abdomen/GI: normal bowel sounds, soft, non-tender to palpation Extremities/Musculoskelatal: normal inspection, no calf tenderness, normal capillary refill, no pedal edema Neurologic/Psych: alert, normal mood/affect, oriented x 3 Skin: normal color, warm/dry Principal Diagnosis Severe CAD Discharge Exam General Appearance: WD/WN, no apparent distress. Resting comfortably Head: normocephalic, atraumatic Eyes: normal inspection, PERRL, EOMI ENT: hearing grossly normal, pharynx normal (moist mucous membranes) Neck: supple, no JVD, no adenopathy Respiratory/Chest: lungs clear to auscultation. No wheezes, rales or rhonci. No respiratory distress or accessory muscle use Cardiovascular: Midline chest scar. No chest wall tenderness. Regular rate, rhythm, no murmur, normal peripheral pulses Abdomen/GI: normal bowel sounds, soft, non-tender to palpation Extremities/Musculoskelatal: normal inspection, no calf tenderness, normal capillary refill, no pedal edema Neurologic/Psych: alert, normal mood/affect, oriented x 3 Skin: normal color, warm/dry Discharge Data Allergies Allergy/AdvReac Type Severity Reaction Status Date / Time No Known Allergies Allergy Unknown Verified 04/29/18 11:31 Consultations 04/29/18 11:08 Consult Cardiology Stat 04/29/18 11:10 ED Decision to Admit Stat 04/29/18 15:05 Consult Cardiology Routine Procedures Performed Operation Date: 04/29/18 13:30 Actual Procedures p Cath, Left w/Cors Vent Grafts - Himanshu Ortega MD s Cineradiography w/Routine Exam - Himanshu Ortega MD Ordered Studies 04/29/18 10:22 CL Cath Imgs for PACS use only Stat Hospital Course (1) Positive cardiac stress test: Patient is a 68-year-old male with a PMH of complex CAD (s/p CABG in September 2017), ischemic heart disease, HTN, HLD, tobacco use disorder, heavy alcohol use , COPD and other medical issues listed below who presents from [facility] with positive exercise stress test. The stress test reported "a fixed mid and apical septal wall motion abnormality with evidence of inducible ischemia involving the anterior and lateral [place]. Test terminated due to progressive dyspnea and left sided scapular discomfort. Discomfort relieved with 2 sublingual nitroglycerin during recovery. The stress EKG response was markedly abnormal consistent with ischemia due to 2+mm ST depression from baseline. ST-segments normalized after 10 minutes of the recovery period." Continues to smoke 1/2 ppd and drink 4-6 beers daily. The patient was sent to [facility], where he underwent a cardiac catheterization by Dr. Ortega, with findings summarized below: 1. Severe multi vessel [place] coronary artery disease * 95% ostial/proximal LAD * 95% ostial circumflex, 99% calcified mid circumflex 2. Widely patent ALLEN to LAD, SVG to right PDA. SVG to first diagonal subtotally occluded, SVG to OM occluded 3. Normal intracardiac filling pressure Complex left main bifurcation stenosis and heavily calcified mid RCA. Recommend transfer to [facility] for complex PCI. Patient is resting after cardiac catheterization procedure. Hemodynamically stable and appropriate for transfer to [facility]. Total Time Total Time Spent Total Time Spent (In Minutes): 40
[2018-04-29] MEDS ORDERED: THIAMINE HCL 100 MG TAB PO SCH (16:00)
[2018-04-29] MEDS ORDERED: FOLIC ACID 1 MG TAB PO SCH (16:00)
[2018-04-29] MEDS ORDERED: HEPARIN STANDARD DEXTROSE 25,000 UNITS/500 ML IV SCH (16:30)
[2018-04-29] MEDS ORDERED: PNEUMOCOCCAL ADMINISTRATION CHARGE ONE (18:00)
[2018-04-29] MEDS ORDERED: PNEUMOCOCCAL POLYSACCHARIDES 25 MCG/0.5 ML VIAL/SYR IM ONE (18:00)
--- NOTE | 2018-04-29 18:58 | Consultation Report ---
DATE OF ADMISSION: 04/29/2018 INPATIENT CARDIOLOGY CONSULTATION CONSULTATION REQUESTED BY: Dr. Martinez. REASON FOR CONSULTATION: Abnormal stress test and cardiac catheterization. HISTORY OF PRESENT ILLNESS: Mr. Dodd is a very pleasant 68-year-old gentleman who normally follows with Dr. Trivedi of our cardiology practice for his history of coronary artery disease. He recently presented for followup with Dr. Trivedi a few weeks ago where he voiced that he was having exertional chest discomfort and required nitroglycerin use. This was similar to the discomfort he had prior to bypass surgery, so he was appropriately sent for stress testing today as an outpatient. Unfortunately, his stress testing came back markedly remarkable for anterior and lateral wall ischemia. He was sent to [facility] via EMS for cardiac catheterization. Cardiac catheterization was kindly performed by Dr. Otrega, which unfortunately revealed that 2 of his vein grafts are now occluded and severe underlying [place] vessel disease. The patient is currently without symptoms at rest. PAST SURGICAL HISTORY: 1. Coronary artery bypass grafting surgery 07/2017 with a ALLEN to LAD, vein graft to diagonal, vein graft to OM1, and vein graft to the RCA. 2. Knee surgery. 3. Jaw surgery. 4. Colonoscopy. 5. Upper endoscopy. 6. Shoulder surgery. 7. Ankle surgeries. MEDICAL ILLNESSES: 1. Coronary artery disease status post CABG x4. 2. Tobacco abuse. 3. Alcoholism. 4. Chronic obstructive pulmonary disease with emphysema. 5. Hypertension. 6. Dyslipidemia. FAMILY HISTORY: Noncontributory. SOCIAL HISTORY: The patient is a long-term smoker and smokes 1 pack a day. He drinks on a regular basis and admits to continue to drink 4 or 5 beers a day. FAMILY HISTORY: Noncontributory. REVIEW OF SYSTEMS: As per HPI, all other review of systems reviewed and negative as described. ALLERGIES: No known drug allergies. MEDICATIONS AN OUTPATIENT: 1. Lisinopril 5 mg daily. 2. Atorvastatin 80 mg daily. 3. Aspirin 162 mg daily. 4. Metoprolol tartrate 12.5 mg b.i.d. 5. P.R.N. nitroglycerin. 6. Tramadol as needed. 7. Albuterol as needed. PHYSICAL EXAMINATION: VITAL SIGNS: Temperature 36.8, pulse 68, respiratory rate 12, blood pressure 128/68. GENERAL: Awake, alert, oriented x3 in no acute distress. HEENT: Normocephalic, atraumatic. Pupils equal, round and reactive to light and accommodation. Extraocular muscles intact. Anicteric sclerae. Moist mucous membranes. Poor dentition. NECK: No JVD, no bruit. CARDIOVASCULAR: Regular. Positive S4. Normal S1 and S2. No S3. No murmurs or rubs. PULMONARY: Decreased breath sounds bilaterally, but clear. No rales, rhonchi, or wheezing. ABDOMEN: Bowel sounds x4, soft. No rebound, guarding, or tenderness. No organomegaly. EXTREMITIES: No clubbing, cyanosis or edema. +2 pedal pulses bilaterally. SKIN: Warm and dry. TEST RESULTS: Cardiac catheterization performed today showed severe multivessel [place] coronary artery disease with 95% ostial/proximal LAD, 95% ostial circumflex, 99% calcified mid circumflex, widely patent ALLEN to the LAD and vein graft to the ____. Vein graft to the first diagonal is subtotally occluded. Vein graft to the OM is occluded. IMPRESSION: 1. Coronary artery disease with a vein graft closure. 2. Severe symptomatic underlying [place] vessel coronary artery disease. 3. Ongoing tobacco abuse. 4. Ongoing alcohol use. RECOMMENDATIONS: It was my pleasure to see Mr. Dodd in consultation today. Unfortunately, given the fact that his grafts are going down and because of his ongoing underlying severe [place] disease, the patient will require complex percutaneous coronary intervention to his circumflex and possibly into his left main along with his calcified RCA, so at this time, I called and discussed the case with the on-call record clerk salesperson at [facility], Dr. Ritchie, and the patient has been accepted for transfer and we will to transfer him as soon as a bed and transportation is available. The above plan was discussed with the patient and his family. They all state that they understand the findings and agree with the plan and wish to proceed.
[2018-04-29] MEDS ORDERED: METOPROLOL TARTRATE 25 MG TAB PO SCH (21:00)
[2018-04-30] MEDS ORDERED: ATORVASTATIN 40 MG TAB PO SCH (09:00)
[2018-04-30] MEDS ORDERED: MULTIVITAMIN TAB PO SCH (09:00)
[2018-04-30] MEDS ORDERED: ASPIRIN 81 MG ECTAB PO SCH (09:00)
== END 2018-04-29 19:50 | disposition short-term general hospital (02) ==
LOC: ED 10:19 → CC 13:36 → 2E 13:36